=== PATIENT | female | born 1945 | race Caucasian/White ===

== ENCOUNTER 2023-08-19 23:11 | Inpatient (IN) | payer MEDICARE, SELFPAY ==
[2023-08-19] VITALS (7 sets, daily range): BP systolic 99–124; BP diastolic 53–70; BMI 27.4
[2023-08-19 19:47] LABS: % Basophils 1.2 % (0-2); % Eosinophils 1.9 % (0-6); % Immature Granulocytes 0.2 % (0-0.5); % Lymphocytes 28.5 % (20.5-51.1); % Monocytes 11.2 % (1.7-9.3); Absolute Basophils 0.1 10^3/uL (0-0.2); Absolute Eosinophils 0.1 10^3/uL (0-0.7); Absolute Lymphocytes 1.5 10^3/uL (1.2-3.4); Absolute Monocytes 0.6 10^3/uL (0.1-0.6); Hematocrit 30.8 % (37.0-47.0); Hemoglobin 10.1 g/dL (12.0-16.0); Mean Corp Hgb Conc. 32.8 g/dL (33.0-37.0); Mean Corpuscular Hgb 29.4 pg (27.0-31.0); Mean Corpuscular Volume 89.5 fL (81.0-99.0); Mean Platelet Volume 8.7 fL (7.4-10.4); Nucleated Red Blood Cells % 0 %; Platelet Count 324 10^3/uL (130-400); Red Blood Cell Count 3.44 10^6/uL (4.20-5.40); Red Cell Dist. Width 15.2 % (11.5-14.5); White Blood Cell Count 5.2 10^3/uL (4.8-10.8)
[2023-08-19 20:02] LABS: ALT (SGPT) 15 U/L (0-35); AST (SGOT) 19 U/L (14-36); Albumin 3.5 g/dl (3.5-5.0); Alkaline Phosphatase 95 U/L (38-126); Blood Urea Nitrogen 31 mg/dl (7-17); Carbon Dioxide 25 mmol/L (22-30); Chloride 105 mmol/L (98-107); Estimated Creatinine Clearance 74 ml/min; Glucose 82 mg/dl (70-99); Potassium 4.3 mmol/L (3.5-5.1); Sodium 139 mmol/L (135-145); Total Bilirubin 0.4 mg/dl (0.2-1.3); Total Protein 5.9 g/dl (6.3-8.2); eGFR > 60.00
[2023-08-19 20:07] LABS: NT-proBNP 207 pg/ml
--- NOTE | 2023-08-19 20:19 | ED.GENMED ---
History of Present Illness
General
Chief Complaint: Failure to Thrive
Source: patient
Exam Limitations: altered mental status
Time Seen by Provider: 08/19/23 19:59
Nursing documentation reviewed up to this point in time: agreed with
Travel History
Have you had any contact with someone who has COVID-19?: No
Do you have any symptoms of coronavirus? Fever > 100 degrees, chills, cough, shortness of breath, sore throat, loss of taste or smell, muscle aches, or headache?: No
History of Present Illness
History of Present Illness:
77 female via EMS presents with failure to thrive, swollen legs hip pain my evaluation she opens eyes to voice she is confused soft blood pressure red swollen legs tells me this is an acute on chronic problem for her
Past History
Past History
ED Past Medical History: Other (Venous stasis)
Social History
Tobacco: Other
Alcohol: Other
Drug: Other
Personal: Single
Living: alone
Employment: Not employed
Phy Exam
Physical Exam
Physical Exam:
Physical Exam
General: Appearing female eyes closed opens to voice
Neck: Lips are dry
Heart: s1/s2 regular rate and rhythm, no murmur. equal radial pulses.
Lungs: no acute respiratory distress.
Abdomen: Soft nontender
Neuro: Confused follows simple commands
Skin: no rash
Psychiatric: Unable to assess
Extremities: Swollen venous stasis cellulitis change
Course
Orders/Labs/Results
Orders:
Orders
08/19/23 19:13
Electrocardiogram (*1) Urgent
Reason for Study: Fatigue / Weakness
08/19/23 19:14
EKG- Treatment ONCE
Hips, Bilat 5 view W/AP Pelvis [CR Hips KALANI w/wo Pel Min 5 Vw*] Urgent
Comment:
Reason For Exam: pain
Include a pelvis x-ray?: Yes
08/19/23 19:33
CMP [Comprehensive Metabolic Panel] Urgent
Complete Blood Count/With Diff Urgent
Pro-BNP [NT-proBNP] Urgent
08/19/23 20:18
CR Chest Portable - 1 View Urgent
Comment:
Reason For Exam: infectoin
Reason Study Needs to be Portable: Patient Unstable
08/19/23 20:21
0.9% Sodium Chloride 1000 ml [Nss] 1,000 ml IV BOLUS
Acetaminophen [Tylenol] 650 mg PO NOW STA
08/19/23 20:24
Electrocardiogram (*1) Urgent
Reason for Study: Vertigo / Dizzy
CT Head W/o Iv Contrast Urgent
Comment:
Reason For Exam: confusion
EKG- Treatment ONCE
08/19/23 20:27
Blood Culture Q30M
BILL Source: Blood/Venous
Specimen Description:
Blood Culture Q30M
BILL Source: Blood/Venous
Specimen Description:
08/19/23 20:35
CeFAZolin 1 GRAM [Ancef] 1 gram in 5 ml IV NOW
08/19/23 20:42
Acetaminophen 1000MG/100Ml [Ofirmev] 1,000 mg in 100 ml IV ONCE
Acetaminophen IV Indication:: No NV & No Enteral Access
08/19/23 20:53
Urinalysis Reflex To Culture Stat
Abnormal Lab Results
08/19/23
19:33
RBC 3.44 L 10^6/uL
(4.20-5.40)
Hgb 10.1 L g/dL
(12.0-16.0)
Hct 30.8 L %
(37.0-47.0)
MCHC 32.8 L g/dL
(33.0-37.0)
RDW 15.2 H %
(11.5-14.5)
Monocytes % 11.2 H %
(1.7-9.3)
BUN 31 H mg/dl
(7-17)
Total Protein 5.9 L g/dl
(6.3-8.2)
08/19/23 19:33
08/19/23 19:33
Vital Signs
Initial and Last Documented VS:
Initial Vital Signs
Temp Pulse Resp BP Pulse Ox
97.8 F 88 25 109/55 99
08/19/23 19:02 08/19/23 19:02 08/19/23 19:02 08/19/23 19:02 08/19/23 19:02
Last Documented Vital Signs
Temp Pulse Resp BP Pulse Ox
97.8 F 86 14 101/55 97
08/19/23 19:02 08/19/23 20:30 08/19/23 20:30 08/19/23 20:20 08/19/23 20:30
*Pulse Oximetry
Patient hypoxic: no
*EKG
Interpreted by ED Provider?: Yes
Interpretation: abnormal
Comparison EKG: no comparison EKG present
Heart Rate: 78
Rate: normal
Rhythm: sinus
Linden: normal axis
Ischemia: non-specific ST changes
*Signal System Testing Maintainer Interpretation
Rate: normal
Interpretation: normal
Heart Rate: 78
Rhythm: sinus
*Critical Care Note
Total Time (30-74mins, 75-104mins- exclusive of procedures): Not Applicable
Update Note
Update Note:
Update patient never been here before she has an unknown baseline mental status, blood pressure is a bit soft white count is noted looks like venous stasis dermatitis will start on Keflex check chest x-ray blood culture CT of the head will require
admission
ED Attending Note
-
Portions of this chart may have been created with voice recognition software.� Occasional wrong word or��sound alike� substitutions may have occurred due to the inherent limitations of voice recognition software.
Discharge Plan
Departure
Patient Disposition: Admit
Date of Disposition: 08/19/23
Time of Disposition: 21:12
Admit to: Telemetry
Presentation/result/management discussed w/ accepting MD/DO: Hospitalist
Patient with high blood pressure during this ER visit?: No
Condition: Fair
Covid-19: Not Applicable
Discharge Problem:
Acute venous stasis dermatitis
Referrals:
UNKNOWN,NO INTERVIEW [Family Provider] -
Interventions
Interventions:
*Risk Screen - Suicide Last Done: 08/19/23 19:02
*General Assessment Last Done: 08/19/23 19:02
*Neglect/Abuse Screening Last Done: 08/19/23 19:02
ED- Fall Risk Assessment Last Done: 08/19/23 19:02
*ED COVID-19 Vaccine History Last Done: 08/19/23 19:02
--- NOTE | 2023-08-19 20:32 | HPS.HSE ---
Addendum entered and electronically signed by Massiel Lamar DO 08/20/23 00:39:
The patient is seen and examined, and reviewed with Deya. I agree with her history and physical, assessment and plan of care as per below.
VSS at this time, AF currently
She is lethargic, unknown baseline, no family to discuss patient's baseline with and EMS did not document condition of patient on arrival to her home.
She responds to sternal rub, no focal deficits noted, CV RRR, no m/r/g, Lungs CTA b/l
Chronic venous stasis changes with overlying cellulitis
-cont IV abx and monitoring of neuro status, await cultures.
-med rec was unable to be performed by Pharmacy-meds have not been obtained from pharmacy since June. Will re-address in am.
Original Note:
Family Physician
-
Family Physician:
Chief Complaint
-
lethargic
b/l LE redness swollen
History of Present Illness
77 year old with unknown medical history presented to us with lethargy. patient extremely lethargic. as per RN ambulance dropped her off. she is been lethargic and sleeping since she came in. opened eye when chest rubbed. ROS is limited. unable to
obtain any history.
received iv Ancef for b/l LE cellulitis.
Medical History
Past Medical History
Past Medical History: Reports Other
Past Surgical History: Reports Other
Social History
Unable to obtain full social history at this time due to: Acuity
Family History
Family History: Not pertinent
Allergies / Home Medications
Allergies reflects when Allergies were last updated in [email or web address].
Home Medications with original date entered in [email or web address]
Allergy/Medication List:
Allergies
Allergy/AdvReac Type Severity Reaction Status Date / Time
No Known Allergies Allergy Unverified 08/19/23 19:02
Review of Systems
-
Unable to obtain full review of systems at this time due to: Acuity
Physical Exam
Vital Signs
Vital Signs
Temp Pulse Resp BP Pulse Ox
97.8 F 83 13 99/53 96
08/19/23 19:02 08/19/23 20:00 08/19/23 20:00 08/19/23 20:00 08/19/23 20:00
Physical Exam
General: Well Developed, Well Nourished and No Apparent Distress
HEENT: NormoCephalic, Moist mucous membranes and Atraumatic
Respiratory: Clear
Cardiac: S1/S2 and Regular Rhythm; No Murmur or Rub
GI: Soft, Non Tender, Non Distended and Normal Bowel Sounds; No Organomegaly
Rectal: Deferred by Provider
Musculoskeletal: No Clubbing, No Cyanosis and No Edema
Skin: Rash and Other (b/l LE red swollen, right LE short)
Neuro: Nonfocal/grossly intact
Laboratory Results
-
08/19/23 19:33
08/19/23 19:33
Laboratory Results
Total Bilirubin 0.4 mg/dl (0.2-1.3) 08/19/23 19:33
AST 19 U/L (14-36) 08/19/23 19:33
ALT 15 U/L (0-35) 08/19/23 19:33
Alkaline Phosphatase 95 U/L (38-126) 08/19/23 19:33
Data Reviewed
-
Lab Data: Labs Reviewed by me
Impression/Plan
-
#lethargic/metabolic encephalopathy unclear cause likely from LE cellulitis
-CT head Small area of encephalomalacia and/or old infarction in the right parietal lobe.No findings to suggest acute intracranial abnormality.
-chest x ray with Mild cardiomegaly.Pulmonary vascularity at least top normal, cannot exclude mild CHF or acute pulmonary edema.
-UA negative.
-iv ancef
-ctm
-blood culture sent from ER
# Anemia unclear chronicity
-Hemoglobin 10.1
-Continue to monitor
#DVT prophylaxis
-Lovenox
#CODE status
-full code
[2023-08-19] MEDS: OFIRMEV 100 IV (20:47)
[2023-08-19] MEDS: ANCEF 5 IV (20:48)
[2023-08-19] MEDS: NSS 1000 IV (20:50)
--- NOTE | 2023-08-19 21:29 | PTCARENOTE ---
Med Rec Note:
Pt obtunded. Home med list compiled from Dr Morrow. Omeprazole is the only medications filled recently on 08/16/23. Furosemide 20mg & 40mg, Lamotrigine and Risperidone all filled last on 06/25/23 for 30 day doses.
Home med list left unconfirmed.
[2023-08-20 00:35] VITALS: BP 118/63; BMI 26.2
--- NOTE | 2023-08-20 00:40 | PTCARENOTE ---
Rec'd to 4E fully awake and alert & oriented x3. c/o discomfort in legs and fingers which are edematous. Impaired movement of legs, hanny Rt leg.
[2023-08-20] MEDS: TYLENOL 650 MG PO (02:22)
--- NOTE | 2023-08-20 02:25 | PTCARENOTE ---
c/o being thirsty and also pain persists in finger joints and Rt leg/knee. Kirit LUNDBERG notified of pt's improvement in alertness/orientation. Swallow test done as suggestion. No difficulty swallowing water; no cough afterward. Tylenol administered
as ordered. No difficulty swallowing pills. Pt very conversive and pleasant. Follows commands. Aware of meds that she has been on and states that currently she has been taking them.
[2023-08-20] MEDS: ANCEF 5 IV ×3 (05:20→19:51)
[2023-08-20] MEDS: FLUSH (NSS) 2 FLUSH IV (05:21)
[2023-08-20 06:28] LABS: Hematocrit 27.6 % (37.0-47.0); Hemoglobin 8.9 g/dL (12.0-16.0); Mean Corp Hgb Conc. 32.2 g/dL (33.0-37.0); Mean Corpuscular Hgb 29.2 pg (27.0-31.0); Mean Corpuscular Volume 90.5 fL (81.0-99.0); Mean Platelet Volume 9.2 fL (7.4-10.4); Platelet Count 289 10^3/uL (130-400); Red Blood Cell Count 3.05 10^6/uL (4.20-5.40); White Blood Cell Count 4.2 10^3/uL (4.8-10.8)
[2023-08-20 06:31] LABS: Blood Urea Nitrogen 27 mg/dl (7-17); Calcium 8.2 mg/dl (8.4-10.2); Carbon Dioxide 25 mmol/L (22-30); Chloride 108 mmol/L (98-107); Estimated Creatinine Clearance 65 ml/min; Glucose 86 mg/dl (70-99); Potassium 4.4 mmol/L (3.5-5.1); Sodium 136 mmol/L (135-145); eGFR > 60.00
[2023-08-20 07:55] VITALS: BP 100/57
--- NOTE | 2023-08-20 14:26 | W.PN.HOSP.TC ---
Today's Communication/Plan
-
Psyche eval
ECHO LE Doppler
Lasix
Iron studies.
PT OT
Wean Oxygen
Assessment / Plan
Assessment / Plan
77-year-old female presented to the emergency room with the help of EMS will drop her off in the ER. Patient states that she was admitted to [facility] it was a '1 day affair' and was discharged on Saturday. She thinks she came here on
Saturday but actually she was admitted on Saturday. She does not know what happened between Saturday and Saturday. She does not know any of her medicines. Does not know any of her medical conditions. States that she has itching of her legs. States that
she has difficulty ambulating. Denies any chest pain or shortness of breath but she is on oxygen.
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 He also notes that she was on lithium at 1 point
he is not sure about any of her medicines at this point. He stated that if she does not get her medicines she will go 'nuts'. He also confirmed that patient is a full code
On examination patient has torticollis
Disheveled appearance
Cardiovascular system S1-S2 appreciated, short systolic murmur at apex
Bilateral lower extremity pedal edema
Chronic venous stasis changes noted mild redness
Abdomen soft and nontender
#Acute hypoxic respiratory insufficiency
Pulmonary vascularity top normal size on x-ray
Give a dose of Lasix
Check echo
Venous Dopplers of lower extremity
Cellulitis being treated with ancef
# Anemia-check iron studies and B12
#Chronic Leg pain and Back pain
Cant ambulate well
Uses walker to walk
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
Medicines need to be verified prior to administering get records from [facility] [place]
Psyche eval
#Torticollis
# DVT prophylaxis-Lovenox
# Full code
Discussed with nursing
Discussed with patient's son on the phone.
Anticipated Discharge: 24 - 48 hours
Subjective/Interval History
-
Date of Service: August 20, 2023
Objective Data
-
Labs:
Laboratory Results
08/20/23
04:56
WBC 4.2 L
Hgb 8.9 L
Hct 27.6 L
Plt Count 289
Sodium 136
Potassium 4.4
Chloride 108 H
Carbon Dioxide 25
BUN 27 H
Creatinine 0.5 L
Glucose 86
Calcium 8.2 L
Vital Signs:
Vital Signs
Temp Pulse Resp BP Pulse Ox
98.2 F 75 18 100/57 96
08/20/23 07:55 08/20/23 07:55 08/20/23 07:55 08/20/23 07:55 08/20/23 07:55
[2023-08-20] MEDS: LASIX 40 MG IV (15:02)
[2023-08-20 15:18] LABS: Iron 34 ug/dl (37-170)
[2023-08-20 15:27] LABS: Percent Saturation 11 % (20-50); Total Iron Binding Capacity 291 ug/dl (265-497)
[2023-08-20 15:55] VITALS: BP 130/64
[2023-08-20 16:28] LABS: Ferritin 19.3 ng/ml (11.1-264.0)
--- NOTE | 2023-08-20 16:34 | CM ---
Alert awake confused patient who lives alone in an apartment with an elevator.She was brought here from [place] .Pt provided son Hubert perez [phone] and friend Amelia number [phone]. Son said that she has mental disease and needs her
psychiatric meds.She usually goes to [facility]. She uses a wheel chair and walker. She has food delivered and medicines.
Has hx of many SNF son does not remember names.
Pharmacy [facility]
PCP Dr Mark Hammonds
PLAN Will depend on course of care
[2023-08-20 16:42] LABS: Vitamin B12 255 pg/ml (239-931)
[2023-08-20] MEDS: LOVENOX 40 MG SC (17:00)
[2023-08-20 23:27] VITALS: BP 106/47
[2023-08-20] MEDS: MAALOX 30 ML PO (23:40)
[2023-08-21] MEDS: ANCEF 5 IV ×3 (04:31→20:26)
[2023-08-21 07:47] LABS: Hematocrit 31.9 % (37.0-47.0); Hemoglobin 10.4 g/dL (12.0-16.0); Mean Corp Hgb Conc. 32.6 g/dL (33.0-37.0); Mean Corpuscular Hgb 29.1 pg (27.0-31.0); Mean Corpuscular Volume 89.4 fL (81.0-99.0); Mean Platelet Volume 9.1 fL (7.4-10.4); Platelet Count 321 10^3/uL (130-400); Red Blood Cell Count 3.57 10^6/uL (4.20-5.40); Red Cell Dist. Width 14.7 % (11.5-14.5); White Blood Cell Count 5.5 10^3/uL (4.8-10.8)
[2023-08-21 07:55] VITALS: BP 133/71
[2023-08-21 08:22] LABS: Blood Urea Nitrogen 16 mg/dl (7-17); Calcium 8.6 mg/dl (8.4-10.2); Carbon Dioxide 29 mmol/L (22-30); Chloride 107 mmol/L (98-107); Estimated Creatinine Clearance 65 ml/min; Glucose 89 mg/dl (70-99); Sodium 135 mmol/L (135-145); eGFR > 60.00
[2023-08-21] MEDS: CYANOCOBALAMIN 1000 MCG IM (09:01)
[2023-08-21 11:44] LABS: TSH 1.01 uIU/ml (0.47-4.68)
[2023-08-21 12:01] LABS: TSH 0.89 uIU/ml (0.47-4.68)
--- NOTE | 2023-08-21 13:00 | CON.MD ---
Consultation - Medical
-
patient seen chart reviewed. patient is a 77 year old woman who comes to [facility] complaint of failure to thrive, weakness, lethargy. she was described as confused and lethargic. she was NOT confused or lethargic when i saw her. she is not a hyper
person by any means but was calmly conversant. she lives on her own in [place] with [facility]. she gets around with a wheelchair. she does have a psych hx of schizoaffective disorder and was last hospitalized ten years ago. she made a
suicide attempt in her twenties. she was on a great deal more risperdal in the past (6 mg) but said she and her doctor (pcp) were gradually reducing the dose and it is now 2 mg. she said it helps her maintain a stable mood. there is no current
evidence of psychosis. also takes lamictal 150 mg bid. she is not particularly depressed right now. she has no suicidal thoughts. no overt psychosis. patient could not explain to me exactly why she could not walk other than pain. see med hx below
past psych hx see above psych illness said to have occurred after a tbi
medical hx reviewed records from [facility] where she was recently. there seem to be many reasons for her ambulatory dysfunction in cluding venous stasis bilateral oa /severe djd of the hips and had been seen by ortho..mentioned she was 'not
interested in surgical repair' but the record did not include what repair may have been recommended. hx anemia LE edema chronic pain gerd chikis hld hx of tbi, cva, scoliosis cat brain shows old infarct cxr prominent pulmonary vasc leg US no
new findings see hip xray.
family hx non contrib
substance abuse none
social hx patient has one son and two grands does not see them much. 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 she worked only for a short time
mse alert ox3 cooperative quietly pleasant. speech soft and normal rate mood is neutral affect ok no si no psychosis above ave intell insight judgment ok
dx schizoaffective d/o by hx
plan would continue lamictal as is. we discussed trying to go down a bit more on the risperdal to 2 mg. suggested she take it at hs but she said she takes all meds in the am as she fears she might forget to take it. patient does seem very frail to
be living alone but seems competent to make up her own mind. would snf for PT strengthening help? will follow up tomorrow.
[2023-08-21 13:02] LABS: Urine Albumin Negative (Neg - Trace); Urine Bilirubin Negative (Negative); Urine Character Clear (Clear); Urine Color Straw; Urine Glucose Negative (Negative); Urine Ketone Negative (Negative); Urine Leukocyte Negative (Negative); Urine Nitrite Negative (Negative); Urine Occult Blood Negative (Negative); Urine Urobilinogen Negative (Neg - 1+)
[2023-08-21] MEDS: FERRLECIT 110 MG IV (13:15)
[2023-08-21] MEDS: LAMICTAL 150 MG PO ×2 (13:32→20:26)
[2023-08-21] MEDS: RISPERDAL 2 MG PO (13:35)
--- NOTE | 2023-08-21 15:50 | W.PN.HOSP.TC ---
Today's Communication/Plan
-
Continue risperidone, Lamictal
Discharge planning
Assessment / Plan
Assessment / Plan
77-year-old female presented to the emergency room with the help of EMS will drop her off in the ER. Patient states that she was admitted to [facility] it was a '1 day affair' and was discharged on Saturday. She thinks she came here on
Saturday but actually she was admitted on Saturday. She does not know what happened between Saturday and Saturday. She does not know any of her medicines. Does not know any of her medical conditions. States that she has itching of her legs. States that
she has difficulty ambulating. Denies any chest pain or shortness of breath but she is on oxygen.
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 He also notes that she was on lithium at 1 point
he is not sure about any of her medicines at this point. He stated that if she does not get her medicines she will go 'nuts'. He also confirmed that patient is a full code
Records from [facility] reviewed-patient has history of
Schizoaffective disorder-severe
DJD, scoliosis
Chronic pain syndrome
TBI with slurry speech
CVA
Hyperlipidemia
Iron deficiency anemia
GERD
Tonsillectomy
Allergies to Parlodel, Septra, vancomycin, sulfa, ceftazidime
She was admitted for bilateral lower extremity edema from chronic venous stasis was treated with Lasix. Echo in November 2022 ejection fraction 55%. Grade 1 diastolic dysfunction. Moderate TR. Mild MR.
She also has a history of iron deficiency anemia hemoglobin around 10. Last colonoscopy 2017 she was on iron sulfate as outpatient
Severe DJD of the right hip patient has seen orthopedics in the past and received right hip injection in June 2023.
Sleep apnea-she does not use CPAP at home
GERD
Schizoaffective disorder
Chronic pain syndrome
Hyperlipidemia not on any medicines
TBI
History of CVA not on aspirin or statin per patient's preference
Scoliosis
She had a chest x-ray done on August 06-showed scarring mild indistinction of the central pulmonary vascular markings stable cardiomegaly
Atherosclerosis
Discharge medicines as of August 06
Risperidone 3 mg p.o. daily
Lamotrigine 150 mg p.o. twice daily
Vitamin D3 1000 units daily
Lidocaine patch as needed for pain
Tylenol 650 mg every 6 hours as needed for pain
Celebrex 100 mg p.o. twice daily
Iron sulfate 325 mg daily
Omeprazole 40 mg daily
Patient was advised to follow-up with Dr. Kaiser at [facility]

CVS: S1-S2 normal
Chest: CTA B/L
Abdomen: Soft, NT / Bowel sounds present
Extremities: edema and redness better
Torticolis
SAND MIXER: Non focal exam
Echo 08/20/2024 normal LV size. Ejection fraction 60 to 65%. Normal diastolic function. Mild TR. Pulmonary artery pressure was 36 mmHg.
Plan
#Acute hypoxic respiratory insufficiency
Pulmonary vascularity top normal size on x-ray
Give a dose of Lasix
Venous Dopplers of lower extremity
Cellulitis being treated with ancef
# Anemia-Replace low B12 and iron
#Chronic Leg pain and Back pain
Cant ambulate well
Uses walker to walk
PT OT eval noted
#Schizo affective disorder. After TBI
Continue Lamictal and risperidone
# GERD-add PPI
# Atherosclerosis
# History of CVA-add aspirin
# Sleep apnea-not on CPAP
# Scoliosis
# DVT prophylaxis-Lovenox
# Full code
Discussed with nursing
08/20/2023-discussed with patient's son on the phone.
Discussed with case management
Anticipated Discharge: Within 24 hours
Subjective/Interval History
-
Date of Service: August 21, 2023
Objective Data
-
Labs:
Laboratory Results
08/21/23
06:32
WBC 5.5
Hgb 10.4 L
Hct 31.9 L
Plt Count 321
Sodium 135
Potassium 4.0
Chloride 107
Carbon Dioxide 29
BUN 16
Creatinine 0.6
Glucose 89
Calcium 8.6
Vital Signs:
Vital Signs
Temp Pulse Resp BP Pulse Ox
97.5 F 72 18 133/71 95
08/21/23 07:55 08/21/23 07:55 08/21/23 07:55 08/21/23 07:55 08/21/23 09:13
I&O
08/20/23 08/21/23 08/22/23
06:59 06:59 06:59
Intake Total 750 / 750
Output Total 2650 / 2650
Balance -1900 / -190
[2023-08-21 15:55] VITALS: BP 119/67
--- NOTE | 2023-08-21 16:44 | CM ---
Spoke with Hoda from [facility] [phone] . Requested clinical fax to floor with patient backround which was done.
Hoda said she has been on service for a while.
Psychiatry saw patient and resumed her psychiatry meds.
As per MD she is capable to make own decisions.
Admission notified to add PCP DR Pena [phone] to chart.
PLAN Home with resumed [facility] fax [phone]
[2023-08-21] MEDS: PROTONIX 40 MG PO (16:57)
[2023-08-21] MEDS: LASIX 40 MG IV (16:57)
[2023-08-21] MEDS: LOVENOX 40 MG SC (17:04)
[2023-08-21] MEDS: BENADRYL 25 MG PO (22:57)
[2023-08-21 23:36] VITALS: BP 95/44
[2023-08-22] MEDS: ANCEF 5 IV ×2 (03:46→11:36)
[2023-08-22 06:00] VITALS: BMI 23.6
[2023-08-22 07:00] VITALS: BP 108/66
--- NOTE | 2023-08-22 07:30 | PN.CDI ---
CDI
- -
CDI:
Physician Documentation Request
Admit Date: 08/19/23 23:11
Dear Doctor Geo,
Please review the following and provide your response in the progress notes.
Clinical Indicators:
H+P, 08/19
#-chest x ray with Mild cardiomegaly.Pulmonary vascularity at least top normal,
#...cannot exclude mild CHF or acute pulmonary edema.
PN, 08/21
#...bilateral lower extremity edema from chronic venous stasis was treated with Lasix.
#Echo in November 2022 ejection fraction 55%.
#...Grade 1 diastolic dysfunction. Moderate TR. Mild MR.
#Acute hypoxic respiratory insufficiency
#Pulmonary vascularity top normal size on x-ray
#Give a dose of Lasix
Medications
Furosemide (Furosemide 40 Mg (10 Mg/Ml) 4 Ml Vial) 40 mg IV NOW STA
Stop: 08/21/23 16:15
Last Admin: 08/21/23 16:57 Dose: 40 mg
Furosemide (Furosemide 40 Mg (10 Mg/Ml) 4 Ml Vial) 40 mg IV NOW STA
Stop: 08/20/23 14:32
Last Admin: 08/20/23 15:02 Dose: 40 mg
Home meds, (unconfirmed)
Lasix 20 and 40 mg PO daily
Please clarify the acuity and etiology of the pulmonary edema(cardiac vs. noncardiogenic) and treatment rendered:
Acute non-cardiac pulmonary edema due to fluid overload
Acute non-cardiac pulmonary edema due to other cause (please specify)\\
Acute pulmonary edema due to heart failure(specify type and acuity)
...Acute diastolic CHF
...Chronic diastolic CHF
...Acute on chronic diastolic CHF
...Acute systolic CHF
...Chronic systolic CHF
...Acute on chronic systolic CHF
Chronic pulmonary edema due to non-cardiac etiology (specify cause)
Other
Use of terms such as suspected, likely, concern for, or probable (associated with a specific diagnosis that is being evaluated, monitored, or treated as if it exists) are acceptable and can be coded in the inpatient setting, when documented at the
time of discharge.
Thank you,
Shakila Hutton RN BSN CCDS
CDI Specialist
please contact via tiger text
Please use your independent medical judgment in providing your response.
--- NOTE | 2023-08-22 07:44 | PN.CDI ---
Addendum entered and electronically signed by Jonnathan Guardado MD 08/22/23 07:50:
So if something is mentioned in the H and P why do we have to say present on admission. Isnt that the first document on that patient after ER?
Original Note:
CDI
- -
CDI:
Physician Documentation Request
Admit Date: 08/19/23 23:11
Dear Doctor Geo,
Please review the following and provide your response in the progress notes.
Clinical Indicators:
H+P, 08/19
#lethargic/metabolic encephalopathy unclear cause likely from LE cellulitis
#...-CT head Small area of encephalomalacia and/or
#...old infarction in the right parietal lobe.
#No findings to suggest acute intracranial abnormality.
Please clarify the following:
Multifactorial metabolic encephalopathy was present on admission
Multifactorial metabolic encephalopathy was not present on admission
Other
Unable to determine
Use of terms such as suspected, likely, concern for, or probable (associated with a specific diagnosis that is being evaluated, monitored, or treated as if it exists) are acceptable and can be coded in the inpatient setting, when documented at the
time of discharge.
Thank you,
Shakila Hutton RN BSN CCDS
CDI Specialist
please contact via tiger text
Please use your independent medical judgment in providing your response.
[2023-08-22] MEDS: RISPERDAL 2 MG PO (08:48)
[2023-08-22] MEDS: LAMICTAL 150 MG PO ×2 (08:48→21:27)
[2023-08-22] MEDS: CYANOCOBALAMIN 1000 MCG IM (08:48)
[2023-08-22] MEDS: PROTONIX 40 MG PO (08:48)
[2023-08-22 09:02] LABS: Hematocrit 31.2 % (37.0-47.0); Hemoglobin 10.2 g/dL (12.0-16.0); Mean Corp Hgb Conc. 32.7 g/dL (33.0-37.0); Mean Corpuscular Hgb 29.1 pg (27.0-31.0); Mean Corpuscular Volume 88.9 fL (81.0-99.0); Mean Platelet Volume 9.1 fL (7.4-10.4); Platelet Count 313 10^3/uL (130-400); Red Blood Cell Count 3.51 10^6/uL (4.20-5.40); Red Cell Dist. Width 15.1 % (11.5-14.5); White Blood Cell Count 5.3 10^3/uL (4.8-10.8)
--- NOTE | 2023-08-22 09:21 | CM ---
Addendum entered by Sri Jerez RN 08/22/23 11:09:
PT changed eval to SNF.
SPoke with patient she requested [facility] . Referral placed. Pt would not provide any other SNF choices.
Addendum entered by Sri Jerez RN 08/22/23 09:35:
In referral to [facility] added social media content specialist consult for extra recourses.
Original Note:
Spoke with Hoda from [facility] [phone] . Care port referral placed . Hoda aware that pt is dc today to home with .Pt is known to [facility].
Psychiatry saw patient and resumed her psychiatry meds.
spoke with patient she said she does not have a ride home. She requested an ambulance to go home. She is aware that she will be charged for ambulance ride home. Medical nec form completed.
As per MD she is capable to make own decisions.
Admission notified to add PCP DR Pena [phone] to chart.
PLAN Home with resumed [facility] fax [phone]
[2023-08-22 09:34] VITALS: BP 105/71; PULSE 91
[2023-08-22 09:47] LABS: Blood Urea Nitrogen 17 mg/dl (7-17); Calcium 8.6 mg/dl (8.4-10.2); Carbon Dioxide 26 mmol/L (22-30); Chloride 107 mmol/L (98-107); Estimated Creatinine Clearance 65 ml/min; Glucose 85 mg/dl (70-99); Potassium 4.2 mmol/L (3.5-5.1); Sodium 136 mmol/L (135-145); eGFR > 60.00
--- NOTE | 2023-08-22 11:55 | W.PN.UPDATE ---
Update Note
Progress Note Update
patient seen chart reviewed. spoke with nursing and with dr patel. the patient is very different from yesterday. she is VERY sedated i believe from the psych meds restarted in the am. i had asked her about taking them in am as risperdal can be
very sedating but she preferred am. i asked her today if she took meds reliably. she said w she would miss a day here and there. this might acccount for the sedation. am going to move risperdal to hs and decrease to one mg. i don't see anything
psychotic about her at this point and she does not seem mood labile. she will definitely need snf after dc and she is agreeable to same. will follow
[2023-08-22] MEDS: FERRLECIT 110 MG IV (13:16)
[2023-08-22 13:37] VITALS: BMI 24.5
--- NOTE | 2023-08-22 14:57 | W.PN.HOSP.TC ---
Today's Communication/Plan
-
Change AB to PO
Medically stable for discharge to rehab per PT recommendations
Assessment / Plan
Assessment / Plan
77-year-old female presented to the emergency room with the help of EMS will drop her off in the ER. Patient states that she was admitted to [facility] it was a '1 day affair' and was discharged on Saturday. She thinks she came here on
Saturday but actually she was admitted on Saturday. She does not know what happened between Saturday and Saturday. She does not know any of her medicines. Does not know any of her medical conditions. States that she has itching of her legs. States that
she has difficulty ambulating. Denies any chest pain or shortness of breath but she is on oxygen.
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 He also notes that she was on lithium at 1 point
he is not sure about any of her medicines at this point. He stated that if she does not get her medicines she will go 'nuts'. He also confirmed that patient is a full code
Records from [facility] reviewed-patient has history of
Schizoaffective disorder-severe
DJD, scoliosis
Chronic pain syndrome
TBI with slurry speech
CVA
Hyperlipidemia
Iron deficiency anemia
GERD
Tonsillectomy
Allergies to Parlodel, Septra, vancomycin, sulfa, ceftazidime
She was admitted for bilateral lower extremity edema from chronic venous stasis was treated with Lasix. Echo in November 2022 ejection fraction 55%. Grade 1 diastolic dysfunction. Moderate TR. Mild MR.
She also has a history of iron deficiency anemia hemoglobin around 10. Last colonoscopy 2017 she was on iron sulfate as outpatient
Severe DJD of the right hip patient has seen orthopedics in the past and received right hip injection in June 2023.
Sleep apnea-she does not use CPAP at home
GERD
Schizoaffective disorder
Chronic pain syndrome
Hyperlipidemia not on any medicines
TBI
History of CVA not on aspirin or statin per patient's preference
Scoliosis
She had a chest x-ray done on August 06-showed scarring mild indistinction of the central pulmonary vascular markings stable cardiomegaly
Atherosclerosis
Discharge medicines as of August 06
Risperidone 3 mg p.o. daily
Lamotrigine 150 mg p.o. twice daily
Vitamin D3 1000 units daily
Lidocaine patch as needed for pain
Tylenol 650 mg every 6 hours as needed for pain
Celebrex 100 mg p.o. twice daily
Iron sulfate 325 mg daily
Omeprazole 40 mg daily
Patient was advised to follow-up with Dr. Kaiser at [facility]

CVS: S1-S2 normal
Chest: CTA B/L
Abdomen: Soft, NT / Bowel sounds present
Extremities: mild edema and redness better
Torticolis
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
Echo 08/20/2024 normal LV size. Ejection fraction 60 to 65%. Normal diastolic function. Mild TR. Pulmonary artery pressure was 36 mmHg.
Plan
#Acute hypoxic respiratory insufficiency
Pulmonary vascularity top normal size on x-ray
May be non cardiogenic
As Normal systolic and diastolic function on ECHO here
Chronic venous stasis
Continue Lasix
Venous Dopplers of lower extremity neg
Cellulitis being treated with ancef-change to Keflex
# Anemia-Replace low B12 and iron
#Chronic Leg pain and Back pain
Cant ambulate well
Uses walker to walk
PT OT eval noted
#Schizo affective disorder. After TBI
Continue Lamictal and risperidone
# GERD-add PPI
# Atherosclerosis
# History of CVA-add aspirin
# Sleep apnea-not on CPAP
# Scoliosis
# DVT prophylaxis-Lovenox
# Full code
Discussed with nursing
Discussed with case management
Anticipated Discharge: Within 24 hours
Subjective/Interval History
-
Date of Service: August 22, 2023
Objective Data
-
Labs:
Laboratory Results
08/22/23
07:49
WBC 5.3
Hgb 10.2 L
Hct 31.2 L
Plt Count 313
Sodium 136
Potassium 4.2
Chloride 107
Carbon Dioxide 26
BUN 17
Creatinine 0.6
Glucose 85
Calcium 8.6
Vital Signs:
Vital Signs
Temp Pulse Resp BP Pulse Ox
97.9 F 69 18 108/66 97
08/22/23 07:00 08/22/23 07:00 08/22/23 07:00 08/22/23 07:00 08/22/23 07:00
I&O
08/21/23 08/22/23 08/23/23
06:59 06:59 06:59
Intake Total 750 / 750 1235 / 1235
Output Total 2650 / 2650 700 / 700
Balance -1900 / -1900 535 / 535
[2023-08-22] MEDS: BENADRYL 25 MG PO ×2 (15:11→23:12)
[2023-08-22] MEDS: LASIX 40 MG IV (15:11)
[2023-08-22] MEDS: ASPIR LOW (ENTERIC COATED) 81 MG PO (15:11)
[2023-08-22 15:34] VITALS: BP 118/62
[2023-08-22] MEDS: LOVENOX 40 MG SC (17:26)
[2023-08-22] MEDS: KEFLEX 500 MG PO ×2 (17:26→21:27)
[2023-08-22] MEDS: TYLENOL 650 MG PO (23:11)
[2023-08-22 23:22] VITALS: BP 107/55
[2023-08-23 05:01] VITALS: BMI 23.0
[2023-08-23 06:58] LABS: Hematocrit 31.9 % (37.0-47.0); Hemoglobin 10.6 g/dL (12.0-16.0); Mean Corp Hgb Conc. 33.2 g/dL (33.0-37.0); Mean Corpuscular Hgb 29.4 pg (27.0-31.0); Mean Corpuscular Volume 88.4 fL (81.0-99.0); Mean Platelet Volume 8.8 fL (7.4-10.4); Platelet Count 282 10^3/uL (130-400); Red Blood Cell Count 3.61 10^6/uL (4.20-5.40); Red Cell Dist. Width 14.8 % (11.5-14.5)
[2023-08-23 07:16] LABS: Blood Urea Nitrogen 20 mg/dl (7-17); Calcium 8.9 mg/dl (8.4-10.2); Carbon Dioxide 30 mmol/L (22-30); Chloride 103 mmol/L (98-107); Estimated Creatinine Clearance 65 ml/min; Glucose 88 mg/dl (70-99); Potassium 4.3 mmol/L (3.5-5.1); Sodium 135 mmol/L (135-145); eGFR > 60.00
[2023-08-23 07:32] VITALS: BP 108/56
[2023-08-23] MEDS: TYLENOL 650 MG PO ×2 (08:12→22:24)
[2023-08-23] MEDS: ASPIR LOW (ENTERIC COATED) 81 MG PO (08:13)
[2023-08-23] MEDS: LAMICTAL 150 MG PO ×2 (08:13→19:29)
[2023-08-23] MEDS: PROTONIX 40 MG PO (08:13)
[2023-08-23] MEDS: CYANOCOBALAMIN 1000 MCG IM (08:14)
[2023-08-23] MEDS: KEFLEX 500 MG PO ×4 (08:14→22:24)
[2023-08-23 11:30] VITALS: BP 100/60
[2023-08-23] MEDS: FERRLECIT 110 MG IV (13:13)
--- NOTE | 2023-08-23 14:05 | W.PN.UPDATE ---
Update Note
Progress Note Update
patient seen chart reviewed. discussed w nursing. patient is awake and much more alert today since risperdal moved to hs. she has been medically cleared for dc to snf but is very fearful when she leaves she will backslide in terms of her medical
condition. tried to reassure her that this will hopefully not be the case. cm searching for snf bed. we will check in on her tomorrow. tonight she resumes one mg risperdal. i did talk to her about moving all the lamotrogine to hs but she was not
keen on it. will leave meds as they are for now.
[2023-08-23 14:46] VITALS: BP 86/52
--- NOTE | 2023-08-23 16:10 | W.PN.HOSP.TC ---
Today's Communication/Plan
-
Medically stable for rehab
Assessment / Plan
Assessment / Plan
77-year-old female presented to the emergency room with the help of EMS will drop her off in the ER. Patient states that she was admitted to [facility] it was a '1 day affair' and was discharged on Saturday. She thinks she came here on
Saturday but actually she was admitted on Saturday. She does not know what happened between Saturday and Saturday. She does not know any of her medicines. Does not know any of her medical conditions. States that she has itching of her legs. States that
she has difficulty ambulating. Denies any chest pain or shortness of breath but she is on oxygen.
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 He also notes that she was on lithium at 1 point
he is not sure about any of her medicines at this point. He stated that if she does not get her medicines she will go 'nuts'. He also confirmed that patient is a full code

CVS: S1-S2 normal
Chest: CTA B/L
Abdomen: Soft, NT / Bowel sounds present
Extremities: mild edema and redness better
Torticolis
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
Echo 08/20/2024 normal LV size. Ejection fraction 60 to 65%. Normal diastolic function. Mild TR. Pulmonary artery pressure was 36 mmHg.
Plan
#Acute hypoxic respiratory insufficiency
Pulmonary vascularity top normal size on x-ray
May be acute non cardiogenic
As Normal systolic and diastolic function on ECHO here
Chronic venous stasis
S/P Lasix
Venous Dopplers of lower extremity neg
Cellulitis being treated with Ancef-change to Keflex
# Anemia-Replace low B12 and iron
#Chronic Leg pain and Back pain
Cant ambulate well
Uses walker to walk
PT OT eval noted
#Schizo affective disorder. After TBI
Continue Lamictal and risperidone
# GERD-add PPI
# Atherosclerosis
# History of CVA-Aspirin
# Sleep apnea-not on CPAP
# Scoliosis
# DVT prophylaxis-Lovenox
# Full code
Discussed with nursing
Discussed with case management
Left message for SON

Records from [facility] reviewed-patient has history of
Schizoaffective disorder-severe
DJD, scoliosis
Chronic pain syndrome
TBI with slurry speech
CVA
Hyperlipidemia
Iron deficiency anemia
GERD
Tonsillectomy
Allergies to Parlodel, Septra, vancomycin, sulfa, ceftazidime
She was admitted for bilateral lower extremity edema from chronic venous stasis was treated with Lasix. Echo in November 2022 ejection fraction 55%. Grade 1 diastolic dysfunction. Moderate TR. Mild MR.
She also has a history of iron deficiency anemia hemoglobin around 10. Last colonoscopy 2017 she was on iron sulfate as outpatient
Severe DJD of the right hip patient has seen orthopedics in the past and received right hip injection in June 2023.
Sleep apnea-she does not use CPAP at home
GERD
Schizoaffective disorder
Chronic pain syndrome
Hyperlipidemia not on any medicines
TBI
History of CVA not on aspirin or statin per patient's preference
Scoliosis
She had a chest x-ray done on August 06-showed scarring mild indistinction of the central pulmonary vascular markings stable cardiomegaly
Atherosclerosis
Discharge medicines as of August 06
Risperidone 3 mg p.o. daily
Lamotrigine 150 mg p.o. twice daily
Vitamin D3 1000 units daily
Lidocaine patch as needed for pain
Tylenol 650 mg every 6 hours as needed for pain
Celebrex 100 mg p.o. twice daily
Iron sulfate 325 mg daily
Omeprazole 40 mg daily
Patient was advised to follow-up with Dr. Kaiser at [facility]
Anticipated Discharge: Within 24 hours
Subjective/Interval History
-
Date of Service: August 23, 2023
Objective Data
-
Labs:
Laboratory Results
08/23/23
06:21
WBC 6.0
Hgb 10.6 L
Hct 31.9 L
Plt Count 282
Sodium 135
Potassium 4.3
Chloride 103
Carbon Dioxide 30
BUN 20 H
Creatinine 0.6
Glucose 88
Calcium 8.9
Vital Signs:
Vital Signs
Temp Pulse Resp BP Pulse Ox
98.1 F 99 16 86/52 96
08/23/23 14:46 08/23/23 14:46 08/23/23 14:46 08/23/23 14:46 08/23/23 14:46
I&O
08/22/23 08/23/23 08/24/23
06:59 06:59 06:59
Intake Total 1235 / 1235 835 / 835
Output Total 700 / 700 2875 / 2875
Balance 535 / 535 -2039 /
[2023-08-23 16:19] VITALS: BP 94/59; PULSE 88; O2SAT 98
--- NOTE | 2023-08-23 16:45 | CM ---
Referral placed to [facility] said Thier were no beds.
Spoke with patient she suggested other SNF she said with [facility].
Referral for [facility] said no beds.
Upon reviewing decided to call [facility] for a level 2 MA 51 assessment.
Spoke with Gloria Shore and Carolyn . MA 51 and Level 2 consents signed by patient and MD.
Clinical and forms faxed to [phone].
IMM letter given to patient to read.
PLAN To Snf after level2 done and SNF located
[2023-08-23] MEDS: LOVENOX 40 MG SC (17:28)
[2023-08-23] MEDS: BENADRYL 25 MG PO (22:24)
[2023-08-23] MEDS: RISPERDAL 1 MG PO (22:24)
[2023-08-23 23:55] VITALS: BP 119/52
[2023-08-24 06:00] VITALS: BMI 24.1
[2023-08-24 07:00] VITALS: BP 95/47
[2023-08-24] MEDS: PROTONIX 40 MG PO (08:01)
[2023-08-24] MEDS: LAMICTAL 150 MG PO ×2 (08:02→20:45)
[2023-08-24] MEDS: KEFLEX 500 MG PO ×4 (08:02→20:46)
[2023-08-24] MEDS: ASPIR LOW (ENTERIC COATED) 81 MG PO (08:02)
[2023-08-24] MEDS: CYANOCOBALAMIN 1000 MCG IM (08:03)
[2023-08-24 09:00] LABS: Blood Urea Nitrogen 21 mg/dl (7-17); Calcium 9.1 mg/dl (8.4-10.2); Carbon Dioxide 29 mmol/L (22-30); Chloride 101 mmol/L (98-107); Estimated Creatinine Clearance 65 ml/min; Glucose 90 mg/dl (70-99); Potassium 4.3 mmol/L (3.5-5.1); Sodium 136 mmol/L (135-145); eGFR > 60.00
[2023-08-24 12:10] LABS: Vitamin B1, Whole Blood 138 nmol/L (70-180)
--- NOTE | 2023-08-24 12:15 | W.PN.HOSP.TC ---
Today's Communication/Plan
-
Medically stable for discharge
Assessment / Plan
Assessment / Plan
77-year-old female presented to the emergency room with the help of EMS will drop her off in the ER. Patient states that she was admitted to [facility] it was a '1 day affair' and was discharged on Saturday. She thinks she came here on
Saturday but actually she was admitted on Saturday. She does not know what happened between Saturday and Saturday. She does not know any of her medicines. Does not know any of her medical conditions. States that she has itching of her legs. States that
she has difficulty ambulating. Denies any chest pain or shortness of breath but she is on oxygen.
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 He also notes that she was on lithium at 1 point
he is not sure about any of her medicines at this point. He stated that if she does not get her medicines she will go 'nuts'. He also confirmed that patient is a full code

CVS: S1-S2 normal
Chest: CTA B/L
Abdomen: Soft, NT / Bowel sounds present
Extremities: mild edema and redness better
Torticolis
PRACTICE PHYSICIAN: Non focal exam
Echo 08/20/2024 normal LV size. Ejection fraction 60 to 65%. Normal diastolic function. Mild TR. Pulmonary artery pressure was 36 mmHg.
Plan
#Acute hypoxic respiratory insufficiency
Pulmonary vascularity top normal size on x-ray
May be acute non cardiogenic
Has Normal systolic and diastolic function on ECHO here
Chronic venous stasis
S/P Lasix
Venous Dopplers of lower extremity neg
Cellulitis being treated with Ancef-changed to Keflex
Surgigrip for legs
# Anemia-Replace low B12 and iron
#Chronic Leg pain and Back pain
Cant ambulate well
Uses walker to walk
PT OT eval noted
#Schizo affective disorder. After TBI
Continue Lamictal and risperidone
# GERD-PPI
# Atherosclerosis
# History of CVA-Aspirin
# Sleep apnea-not on CPAP
# Scoliosis/DJD
# DVT prophylaxis-Lovenox
# Full code
Discussed with nursing
Called SON, went to message again

Records from [facility] reviewed-patient has history of
Schizoaffective disorder-severe
DJD, scoliosis
Chronic pain syndrome
TBI with slurry speech
CVA
Hyperlipidemia
Iron deficiency anemia
GERD
Tonsillectomy
Allergies to Parlodel, Septra, vancomycin, sulfa, ceftazidime
She was admitted for bilateral lower extremity edema from chronic venous stasis was treated with Lasix. Echo in November 2022 ejection fraction 55%. Grade 1 diastolic dysfunction. Moderate TR. Mild MR.
She also has a history of iron deficiency anemia hemoglobin around 10. Last colonoscopy 2017 she was on iron sulfate as outpatient
Severe DJD of the right hip patient has seen orthopedics in the past and received right hip injection in June 2023.
Sleep apnea-she does not use CPAP at home
GERD
Schizoaffective disorder
Chronic pain syndrome
Hyperlipidemia not on any medicines
TBI
History of CVA not on aspirin or statin per patient's preference
Scoliosis
She had a chest x-ray done on August 06-showed scarring mild indistinction of the central pulmonary vascular markings stable cardiomegaly
Atherosclerosis
Discharge medicines as of August 06
Risperidone 3 mg p.o. daily
Lamotrigine 150 mg p.o. twice daily
Vitamin D3 1000 units daily
Lidocaine patch as needed for pain
Tylenol 650 mg every 6 hours as needed for pain
Celebrex 100 mg p.o. twice daily
Iron sulfate 325 mg daily
Omeprazole 40 mg daily
Patient was advised to follow-up with Dr. Kaiser at [facility]
Anticipated Discharge: Within 24 hours
Subjective/Interval History
-
Date of Service: August 24, 2023
Objective Data
-
Labs:
Laboratory Results
08/24/23
08:05
Sodium 136
Potassium 4.3
Chloride 101
Carbon Dioxide 29
BUN 21 H
Creatinine 0.6
Glucose 90
Calcium 9.1
Vital Signs:
Vital Signs
Temp Pulse Resp BP Pulse Ox
98.1 F 87 18 95/47 95
08/24/23 07:00 08/24/23 07:00 08/24/23 07:00 08/24/23 07:00 08/24/23 07:00
I&O
08/23/23 08/24/23 08/25/23
06:59 06:59 06:59
Intake Total 835 / 835 1410 / 1410
Output Total 2875 / 2875
Balance -2039 / -2039 1410 / 1410
--- NOTE | 2023-08-24 12:17 | W.PN.UPDATE ---
Update Note
Progress Note Update
Psychiatry follow up. Chart reviewed. Patient states she is slept ok and was able to eat breakfast. She is requesting extra coffee. She denies feeling confused and states she is willing to go to a SNF.
MSE- good eye contact. fluent speech. goal directed. Denies SI/HI/AVH. no delusions. limited I/J. oriented to self, place, year, month, date at this time
Plan- continue current regimen. Psychiatry will sign off. contact team with questions or concerns.
[2023-08-24] MEDS: FERRLECIT 110 MG IV (15:05)
[2023-08-24 15:06] VITALS: BP 104/58
[2023-08-24 15:37] VITALS: BP 101/55; PULSE 78; O2SAT 94
[2023-08-24] MEDS: LOVENOX 40 MG SC (18:30)
[2023-08-24] MEDS: RISPERDAL 1 MG PO (20:47)
--- NOTE | 2023-08-24 21:49 | VATNOTE ---
Called by staff educator for ferric sodium gluconate infiltrate given at 15:00. Pt. c/o pain at site, which is red, approx. 5cm x 5cm infiltrate. +radial pulse, +cap. refill 1-2 sec. No cord palpated. Call to pharmacy by this RN, recommend warm or cold
compress and elevate. Med is not a vesicant. Kirit Sharma NP in to see pt. IV removed. Pt. states, 'Feels better with wm. compress'. senior it business analyst aware. Will follow.
[2023-08-24 23:55] VITALS: BP 104/45
[2023-08-25 06:00] VITALS: BMI 24.5
[2023-08-25 08:01] VITALS: BP 97/50
[2023-08-25 08:05] VITALS: BP 97/50
[2023-08-25] MEDS: LAMICTAL 150 MG PO ×2 (08:13→20:59)
[2023-08-25] MEDS: PROTONIX 40 MG PO (08:13)
[2023-08-25] MEDS: KEFLEX 500 MG PO (08:15)
[2023-08-25] MEDS: ASPIR LOW (ENTERIC COATED) 81 MG PO (08:16)
[2023-08-25] MEDS: CYANOCOBALAMIN 1000 MCG IM (08:16)
[2023-08-25 12:11] VITALS: BP 84/46
--- NOTE | 2023-08-25 13:52 | W.PN.HOSP.TC ---
Addendum entered and electronically signed by Jonnathan Guardado MD 08/25/23 14:02:
Stop AB
Original Note:
Today's Communication/Plan
-
Pt waiting for rehab. But now says she wants to go home and havs some one at her home there waiting for her . They need to clean the house as she no longer can do it.
I spoke to son and updated. Patient has had several aids in the past he states that patient becomes paranoid she does not take medicines and then she will start suspecting the aids, therefore cannot keep any of them.
Patient was much calmer until yesterday, appearing very anxious today. I will request psychiatry to evaluate and adjust medicines.
Assessment / Plan
Assessment / Plan
77-year-old female presented to the emergency room with the help of EMS will drop her off in the ER. Patient states that she was admitted to [facility] it was a '1 day affair' and was discharged on Saturday. She thinks she came here on
Saturday but actually she was admitted on Saturday. She does not know what happened between Saturday and Saturday. She does not know any of her medicines. Does not know any of her medical conditions. States that she has itching of her legs. States that
she has difficulty ambulating. Denies any chest pain or shortness of breath but she is on oxygen.
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 He also notes that she was on lithium at 1 point
he is not sure about any of her medicines at this point. He stated that if she does not get her medicines she will go 'nuts'. He also confirmed that patient is a full code

CVS: S1-S2 normal
Chest: CTA B/L
Abdomen: Soft, NT / Bowel sounds present
Extremities: mild edema and redness better
Torticolis
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
Echo 08/20/2024 normal LV size. Ejection fraction 60 to 65%. Normal diastolic function. Mild TR. Pulmonary artery pressure was 36 mmHg.
Plan
#Acute hypoxic respiratory insufficiency
Pulmonary vascularity top normal size on x-ray
May be acute non cardiogenic
Has Normal systolic and diastolic function on ECHO here
Chronic venous stasis
S/P Lasix
Venous Dopplers of lower extremity neg
Cellulitis being treated with Ancef-changed to Keflex
Surgigrip for legs
#Schizo affective disorder. After TBI
Continue Lamictal and risperidone
Patent looks restless and anxious
Risperidone was decreased here
Will request Psyche to see again to see if we need to increase meds.
# Anemia-Replace low B12 and iron
#Chronic Leg pain and Back pain
Cant ambulate well
Uses walker to walk
PT OT eval noted
# GERD-PPI
# Atherosclerosis
# History of CVA-Aspirin
# Sleep apnea-not on CPAP
# Scoliosis/DJD
# DVT prophylaxis-Lovenox
# Full code
Discussed with nursing
Pt waiting for rehab. But now says she wants to go home and havs some one at her home there waiting for her . They need to clean the house as she no longer can do it.
I spoke to son and updated. Patient has had several aids in the past he states that patient becomes paranoid she does not take medicines and then she will start suspecting the aids, therefore cannot keep any of them.
Patient was much calmer until yesterday, appearing very anxious today. I will request psychiatry to evaluate and adjust medicines.

Records from [facility] reviewed-patient has history of
Schizoaffective disorder-severe
DJD, scoliosis
Chronic pain syndrome
TBI with slurry speech
CVA
Hyperlipidemia
Iron deficiency anemia
GERD
Tonsillectomy
Allergies to Parlodel, Septra, vancomycin, sulfa, ceftazidime
She was admitted for bilateral lower extremity edema from chronic venous stasis was treated with Lasix. Echo in November 2022 ejection fraction 55%. Grade 1 diastolic dysfunction. Moderate TR. Mild MR.
She also has a history of iron deficiency anemia hemoglobin around 10. Last colonoscopy 2017 she was on iron sulfate as outpatient
Severe DJD of the right hip patient has seen orthopedics in the past and received right hip injection in June 2023.
Sleep apnea-she does not use CPAP at home
GERD
Schizoaffective disorder
Chronic pain syndrome
Hyperlipidemia not on any medicines
TBI
History of CVA not on aspirin or statin per patient's preference
Scoliosis
She had a chest x-ray done on August 06-showed scarring mild indistinction of the central pulmonary vascular markings stable cardiomegaly
Atherosclerosis
Discharge medicines as of August 06
Risperidone 3 mg p.o. daily
Lamotrigine 150 mg p.o. twice daily
Vitamin D3 1000 units daily
Lidocaine patch as needed for pain
Tylenol 650 mg every 6 hours as needed for pain
Celebrex 100 mg p.o. twice daily
Iron sulfate 325 mg daily
Omeprazole 40 mg daily
Patient was advised to follow-up with Dr. Kaiser at [facility]
Anticipated Discharge: 24 - 48 hours
Subjective/Interval History
-
Date of Service: August 25, 2023
Objective Data
-
Vital Signs:
Vital Signs
Temp Pulse Resp BP Pulse Ox
98.1 F 88 16 84/46 95
08/25/23 12:11 08/25/23 12:11 08/25/23 12:11 08/25/23 12:11 08/25/23 12:11
I&O
08/24/23 08/25/23 08/26/23
06:59 06:59 06:59
Intake Total 1410 / 1410
Balance 1410 / 1410
--- NOTE | 2023-08-25 14:25 | W.PN.UPDATE ---
Update Note
Progress Note Update
Psychiatry asked to follow up with patient as she is was thought to be more anxious today. Her Risperdal dose was recently lowered to 1 mg HS, and the question was about increasing this dose.
Pt was quite clear that on the higher dose she was very sleepy in the morning.
Her anxiety is focussed on her fear of 'going to a chcf and then never getting to go back to my home.'
As this is a reasonable anxiety I do not see it as a rationale to increase dose of Risperdal, especially because of the sedation she experienced. I checked for cogwheeling and there is none.
We will follow up.
[2023-08-25 15:15] VITALS: BP 97/51
[2023-08-25] MEDS: KEFLEX PO (15:23)
--- NOTE | 2023-08-25 15:45 | CM ---
CM following re: d/c planning
Chart reviewed
Pt discharge anticipated within the next 24-48 hours pending level II assessment completed by KARTHIK
CM spoke with patient at bedside and she was very tearful stating her son & spouse had neglected her and the only reason she has any semblance of happiness was through two friends and her cat
Psych is following the patient and will continue until discharged; medications will be adjusted accordingly
Several referrals were placed via care port by the previous CM and some of which do have bed availability
CM will continue to coordinate d/c efforts with the [facility]
PLAN; CM following for d/c needs as indicated
[2023-08-25] MEDS: FERRLECIT IV (15:59)
[2023-08-25] MEDS: LOVENOX 40 MG SC (17:24)
[2023-08-25] MEDS: RISPERDAL 1 MG PO (20:59)
[2023-08-25 23:03] VITALS: BP 113/54
[2023-08-26 06:00] VITALS: BMI 25.0
--- NOTE | 2023-08-26 06:42 | PTCARENOTE ---
Pt awake for majority of shift, did not fall asleep until 05:30. Patient anxious throughout the night with multiple requests for PT to come see her early in AM, stamps for letters for her rn labor and delivery, a hospital bed for home, a list of 'adult living
apartments', and knee and hip injections. Emotional support provided to patient. Plan of care ongoing
[2023-08-26 07:00] VITALS: BP 122/70
[2023-08-26] MEDS: ASPIR LOW (ENTERIC COATED) 81 MG PO (07:55)
[2023-08-26] MEDS: LAMICTAL 150 MG PO ×2 (07:55→21:24)
[2023-08-26] MEDS: PROTONIX 40 MG PO (07:56)
[2023-08-26] MEDS: CYANOCOBALAMIN 1000 MCG IM (07:56)
--- NOTE | 2023-08-26 09:32 | CM ---
Addendum entered by Nasra Gonzales 08/26/23 13:24:
Patient seen at bedside. Patient states she wants to go for [address]. CM indicated that referrals were out looking for options.
Original Note:
CM called to [facility] and left message with players club representative regarding the scheduling of the Level II assessment. Due to holiday, may not receive response today. CM will continue to try to reach person at the agency.
--- NOTE | 2023-08-26 12:11 | W.PN.HOSP.TC ---
Today's Communication/Plan
-
.
Assessment / Plan
Assessment / Plan
77-year-old female presented to the emergency room with the help of EMS will drop her off in the ER. Patient states that she was admitted to [facility] it was a '1 day affair' and was discharged on Saturday. She thinks she came here on
Saturday but actually she was admitted on Saturday. She does not know what happened between Saturday and Saturday. She does not know any of her medicines. Does not know any of her medical conditions. States that she has itching of her legs. States that
she has difficulty ambulating. Denies any chest pain or shortness of breath but she is on oxygen.
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 He also notes that she was on lithium at 1 point
he is not sure about any of her medicines at this point. He stated that if she does not get her medicines she will go 'nuts'. He also confirmed that patient is a full code

Physical exam:
general: not in distress
CVS: S1-S2 normal
Chest: CTA B/L
Abdomen: Soft, NT / Bowel sounds present
Extremities: no edema or redness noted
[place]
TUG BOAT ENGINEER: Non focal exam
Psych: no agitation, calm
Echo 08/20/2024 normal LV size. Ejection fraction 60 to 65%. Normal diastolic function. Mild TR. Pulmonary artery pressure was 36 mmHg.
Plan
#Acute hypoxic respiratory insufficiency
Pulmonary vascularity top normal size on x-ray
May be acute non cardiogenic
Has Normal systolic and diastolic function on ECHO here
Chronic venous stasis
S/P Lasix
Venous Doppler of lower extremity neg
Cellulitis being treated with Ancef-changed to Keflex
Surgigrip for legs
#Schizo affective disorder. After TBI
Continue Lamictal and risperidone
Patent looks restless and anxious
Risperidone was decreased here
Psyche felt dose was appropriate
# IV iron infiltrate on 08/25
indurated lump
will do warm compresses on right forearm
# Anemia-Replace low B12 and iron
#Chronic Leg pain and Back pain
Cant ambulate well
Uses walker to walk
PT OT eval noted
# GERD-PPI
# Atherosclerosis
# History of CVA-Aspirin
# Sleep apnea-not on CPAP
# Scoliosis/DJD
# DVT prophylaxis-Lovenox
# Full code
Total time spent to see the patient, examine the patient on the floor, review data and lab results, discuss treatment plan with patient, nursing staff around 55 minutes
Discussed with nursing
Pt waiting for rehab. But now says she wants to go home and havs some one at her home there waiting for her . They need to clean the house as she no longer can do it.
Hospitalist spoke to son and updated. Patient has had several aids in the past he states that patient becomes paranoid she does not take medicines and then she will start suspecting the aids, therefore cannot keep any of them.

Records from [facility] reviewed-patient has history of
Schizoaffective disorder-severe
DJD, scoliosis
Chronic pain syndrome
TBI with slurry speech
CVA
Hyperlipidemia
Iron deficiency anemia
GERD
Tonsillectomy
Allergies to Parlodel, Septra, vancomycin, sulfa, ceftazidime
She was admitted for bilateral lower extremity edema from chronic venous stasis was treated with Lasix. Echo in November 2022 ejection fraction 55%. Grade 1 diastolic dysfunction. Moderate TR. Mild MR.
She also has a history of iron deficiency anemia hemoglobin around 10. Last colonoscopy 2017 she was on iron sulfate as outpatient
Severe DJD of the right hip patient has seen orthopedics in the past and received right hip injection in June 2023.
Sleep apnea-she does not use CPAP at home
GERD
Schizoaffective disorder
Chronic pain syndrome
Hyperlipidemia not on any medicines
TBI
History of CVA not on aspirin or statin per patient's preference
Scoliosis
She had a chest x-ray done on August 06-showed scarring mild indistinction of the central pulmonary vascular markings stable cardiomegaly
Atherosclerosis
Discharge medicines as of August 06
Risperidone 3 mg p.o. daily
Lamotrigine 150 mg p.o. twice daily
Vitamin D3 1000 units daily
Lidocaine patch as needed for pain
Tylenol 650 mg every 6 hours as needed for pain
Celebrex 100 mg p.o. twice daily
Iron sulfate 325 mg daily
Omeprazole 40 mg daily
Patient was advised to follow-up with Dr. Kaiser at [facility]
Anticipated Discharge: Within 24 hours
Subjective/Interval History
-
Date of Service: August 26, 2023
No chest pain
No sob
No abd pain
Objective Data
-
Vital Signs:
Vital Signs
Temp Pulse Resp BP Pulse Ox
97.8 F 90 18 122/70 95
08/26/23 07:00 08/26/23 07:00 08/26/23 07:00 08/26/23 07:00 08/26/23 07:00
I&O
08/25/23 08/26/23 08/27/23
06:59 06:59 06:59
Intake Total 740 / 740
Balance 740 / 740
[2023-08-26 15:00] VITALS: BP 110/48
[2023-08-26] MEDS: LOVENOX 40 MG SC (17:13)
[2023-08-26] MEDS: RISPERDAL 1 MG PO (21:24)
[2023-08-26 23:35] VITALS: BP 101/57
[2023-08-27 06:00] VITALS: BMI 23.8
[2023-08-27 07:00] VITALS: BP 97/57
[2023-08-27] MEDS: PROTONIX 40 MG PO (07:39)
[2023-08-27] MEDS: ASPIR LOW (ENTERIC COATED) 81 MG PO (07:39)
[2023-08-27] MEDS: LAMICTAL 150 MG PO ×2 (07:39→21:53)
[2023-08-27] MEDS: CYANOCOBALAMIN 1000 MCG IM (07:40)
--- NOTE | 2023-08-27 10:09 | W.PN.HOSP.TC ---
Today's Communication/Plan
-
dc
Assessment / Plan
Assessment / Plan
77-year-old female presented to the emergency room with the help of EMS will drop her off in the ER. Patient states that she was admitted to [facility] it was a '1 day affair' and was discharged on Saturday. She thinks she came here on
Saturday but actually she was admitted on Saturday. She does not know what happened between Saturday and Saturday. She does not know any of her medicines. Does not know any of her medical conditions. States that she has itching of her legs. States that
she has difficulty ambulating. Denies any chest pain or shortness of breath but she is on oxygen.
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 He also notes that she was on lithium at 1 point
he is not sure about any of her medicines at this point. He stated that if she does not get her medicines she will go 'nuts'. He also confirmed that patient is a full code

Physical exam:
general: not in distress
CVS: S1-S2 normal
Chest: CTA B/L
Abdomen: Soft, NT / Bowel sounds present
Extremities: no edema or redness noted
[place]
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
Psych: no agitation, calm
Echo 08/20/2024 normal LV size. Ejection fraction 60 to 65%. Normal diastolic function. Mild TR. Pulmonary artery pressure was 36 mmHg.
Plan
#Acute hypoxic respiratory insufficiency
Pulmonary vascularity top normal size on x-ray
May be acute non cardiogenic
Has Normal systolic and diastolic function on ECHO here
Chronic venous stasis
S/P Lasix
Venous Doppler of lower extremity neg
Cellulitis being treated with Ancef-changed to Keflex
Surgigrip for legs
#Schizo affective disorder. After TBI
Continue Lamictal and risperidone
Risperidone was decreased here
Psyche felt dose was appropriate , will ask to re-evaluate
# IV iron infiltrate on 08/25
indurated lump
c/w warm compresses on right forearm
# Anemia-Replace low B12 and iron
#Chronic Leg pain and Back pain
Cant ambulate well
Uses walker to walk
PT OT eval noted
# GERD-PPI
# Atherosclerosis
# History of CVA-Aspirin
# Sleep apnea-not on CPAP
# Scoliosis/DJD
# DVT prophylaxis-Lovenox
# Full code
Total time spent to see the patient, examine the patient on the floor, review data and lab results, discuss treatment plan with patient, nursing staff around 45 minutes
Discussed with nursing
Pt waiting for rehab. But now says she wants to go home and havs some one at her home there waiting for her . They need to clean the house as she no longer can do it.
Hospitalist spoke to son and updated. Patient has had several aids in the past he states that patient becomes paranoid she does not take medicines and then she will start suspecting the aids, therefore cannot keep any of them.

Records from [facility] reviewed-patient has history of
Schizoaffective disorder-severe
DJD, scoliosis
Chronic pain syndrome
TBI with slurry speech
CVA
Hyperlipidemia
Iron deficiency anemia
GERD
Tonsillectomy
Allergies to Parlodel, Septra, vancomycin, sulfa, ceftazidime
She was admitted for bilateral lower extremity edema from chronic venous stasis was treated with Lasix. Echo in November 2022 ejection fraction 55%. Grade 1 diastolic dysfunction. Moderate TR. Mild MR.
She also has a history of iron deficiency anemia hemoglobin around 10. Last colonoscopy 2017 she was on iron sulfate as outpatient
Severe DJD of the right hip patient has seen orthopedics in the past and received right hip injection in June 2023.
Sleep apnea-she does not use CPAP at home
GERD
Schizoaffective disorder
Chronic pain syndrome
Hyperlipidemia not on any medicines
TBI
History of CVA not on aspirin or statin per patient's preference
Scoliosis
She had a chest x-ray done on August 06-showed scarring mild indistinction of the central pulmonary vascular markings stable cardiomegaly
Atherosclerosis
Discharge medicines as of August 06
Risperidone 3 mg p.o. daily
Lamotrigine 150 mg p.o. twice daily
Vitamin D3 1000 units daily
Lidocaine patch as needed for pain
Tylenol 650 mg every 6 hours as needed for pain
Celebrex 100 mg p.o. twice daily
Iron sulfate 325 mg daily
Omeprazole 40 mg daily
Patient was advised to follow-up with Dr. Kaiser at [facility]
Anticipated Discharge: Today
Subjective/Interval History
-
Date of Service: August 27, 2023
Afebrile
No hypotension
Objective Data
-
Vital Signs:
Vital Signs
Temp Pulse Resp BP Pulse Ox
98 F 50 18 97/57 96
08/27/23 07:00 08/27/23 07:00 08/27/23 07:00 08/27/23 07:00 08/27/23 07:00
I&O
08/26/23 08/27/23 08/28/23
06:59 06:59 06:59
Intake Total 740 / 740 240 / 240
Balance 740 / 740 240 / 240
--- NOTE | 2023-08-27 12:23 | W.PN.UPDATE ---
Update Note
Progress Note Update
Psychiatry asked to follow this pt, who has not been sleeping well, up most of last night making multiple requests/goal-driven. Discussed with nursing staff, reviewed discharge papers from recent admission at [facility]; pt was on
Risperidone 3 mg daily. Dose was tapered here and changed to HS due to sedation. Pt seen reclining in bed, alert, initially calm but became more irritable and demanding as the conversation continued, insisting on leaving today/wanting me to get PT
to come in right away, etc. No signs of EPS or sedation today.
Imp: Schizoaffective d/o by hx, becoming more irritable/ not sleeping with decreased Risperidone dose
Rec: Will increase Risperidone to 2 mg HS, ordering 0.5 mg po at 1 pm today x 1. Continue Lamotrigine
Will continue to follow
[2023-08-27] MEDS: RISPERDAL 0.5 MG PO (13:40)
[2023-08-27 16:19] VITALS: BP 110/59
--- NOTE | 2023-08-27 16:35 | CM ---
Spoke with Delfina WALDRON sent additional information faxed to [phone] as requested.
Spoke with patient explained level 2 assessment needed to be completed before going to SNF.
Brandee WALDRON proform level 2 MA 51 assessment.
After Level 2 done will need to locate SNF.
PLAN To SNF after level2 done and SNF located
[2023-08-27] MEDS: LOVENOX 40 MG SC (17:21)
[2023-08-27] MEDS: RISPERDAL 2 MG PO (21:54)
[2023-08-27] MEDS: TYLENOL 650 MG PO (23:32)
[2023-08-27 23:53] VITALS: BP 116/59
--- NOTE | 2023-08-28 04:43 | DOWNTIME ---
There was a [employer] Downtime on 08/28/2023 from 0111 to 08/28/2023 at 0405. Downtime documentation of patient's care, including medication administrations, has been reconciled in the electronic record per guidelines. Refer to the
patient's paper chart under the miscellaneous tab to see printed paper medication records and downtime forms.
[2023-08-28 06:00] VITALS: BMI 24.4
[2023-08-28 07:15] VITALS: BP 133/68
[2023-08-28] MEDS: LAMICTAL 150 MG PO ×2 (07:50→20:15)
[2023-08-28] MEDS: PROTONIX 40 MG PO (07:50)
[2023-08-28] MEDS: ASPIR LOW (ENTERIC COATED) 81 MG PO (07:50)
--- NOTE | 2023-08-28 09:21 | W.PN.HOSP.TC ---
Today's Communication/Plan
-
dc
Assessment / Plan
Assessment / Plan
77-year-old female presented to the emergency room with the help of EMS will drop her off in the ER. Patient states that she was admitted to [facility] it was a '1 day affair' and was discharged on Saturday. She thinks she came here on
Saturday but actually she was admitted on Saturday. She does not know what happened between Saturday and Saturday. She does not know any of her medicines. Does not know any of her medical conditions. States that she has itching of her legs. States that
she has difficulty ambulating. Denies any chest pain or shortness of breath but she is on oxygen.
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 He also notes that she was on lithium at 1 point
he is not sure about any of her medicines at this point. He stated that if she does not get her medicines she will go 'nuts'. He also confirmed that patient is a full code

Physical exam:
general: not in distress
CVS: S1-S2 normal
Chest: CTA B/L
Abdomen: Soft, NT / Bowel sounds present
Extremities: no edema or redness noted
[place]
WORKFORCE DEVELOPMENT ASSISTANT: Non focal exam
Psych: no agitation, calm
Echo 08/20/2024 normal LV size. Ejection fraction 60 to 65%. Normal diastolic function. Mild TR. Pulmonary artery pressure was 36 mmHg.
Plan
#Acute hypoxic respiratory insufficiency
Pulmonary vascularity top normal size on x-ray
May be acute non cardiogenic
Has Normal systolic and diastolic function on ECHO here
Chronic venous stasis
S/P Lasix
Venous Doppler of lower extremity neg
Cellulitis being treated with Ancef-changed to Keflex
Surgigrip for legs
#Schizo affective disorder. After TBI
Continue Lamictal and risperidone
Risperidone dose was adjusted and she seemed to do well.
# IV iron infiltrate on 08/25
indurated lump
c/w warm compresses on right forearm
# Anemia-Replace low B12 and iron
#Chronic Leg pain and Back pain
Cant ambulate well
Uses walker to walk
PT OT eval noted
# GERD-PPI
# Atherosclerosis
# History of CVA-Aspirin
# Sleep apnea-not on CPAP
# Scoliosis/DJD
# DVT prophylaxis-Lovenox
# Full code
Total time spent to see the patient, examine the patient on the floor, review data and lab results, discuss treatment plan with patient, nursing staff around 45 minutes
Discussed with nursing
Pt waiting for rehab. But now says she wants to go home and havs some one at her home there waiting for her . They need to clean the house as she no longer can do it.
Hospitalist spoke to son and updated. Patient has had several aids in the past he states that patient becomes paranoid she does not take medicines and then she will start suspecting the aids, therefore cannot keep any of them.

Records from [facility] reviewed-patient has history of
Schizoaffective disorder-severe
DJD, scoliosis
Chronic pain syndrome
TBI with slurry speech
CVA
Hyperlipidemia
Iron deficiency anemia
GERD
Tonsillectomy
Allergies to Parlodel, Septra, vancomycin, sulfa, ceftazidime
She was admitted for bilateral lower extremity edema from chronic venous stasis was treated with Lasix. Echo in November 2022 ejection fraction 55%. Grade 1 diastolic dysfunction. Moderate TR. Mild MR.
She also has a history of iron deficiency anemia hemoglobin around 10. Last colonoscopy 2017 she was on iron sulfate as outpatient
Severe DJD of the right hip patient has seen orthopedics in the past and received right hip injection in June 2023.
Sleep apnea-she does not use CPAP at home
GERD
Schizoaffective disorder
Chronic pain syndrome
Hyperlipidemia not on any medicines
TBI
History of CVA not on aspirin or statin per patient's preference
Scoliosis
She had a chest x-ray done on August 06-showed scarring mild indistinction of the central pulmonary vascular markings stable cardiomegaly
Atherosclerosis
Discharge medicines as of August 06
Risperidone 3 mg p.o. daily
Lamotrigine 150 mg p.o. twice daily
Vitamin D3 1000 units daily
Lidocaine patch as needed for pain
Tylenol 650 mg every 6 hours as needed for pain
Celebrex 100 mg p.o. twice daily
Iron sulfate 325 mg daily
Omeprazole 40 mg daily
Patient was advised to follow-up with Dr. Kaiser at [facility]
Anticipated Discharge: Today
Subjective/Interval History
-
Date of Service: August 28, 2023
No issues over night
slept well
Objective Data
-
Vital Signs:
Vital Signs
Temp Pulse Resp BP Pulse Ox
97.3 F 74 18 133/68 97
08/28/23 07:15 08/28/23 07:15 08/28/23 07:15 08/28/23 07:15 08/28/23 07:15
I&O
08/27/23 08/28/23 08/29/23
06:59 06:59 06:59
Intake Total 240 / 240 480 / 480
Balance 240 / 240 480 / 480
[2023-08-28] MEDS: CYANOCOBALAMIN 1000 MCG IM (09:38)
--- NOTE | 2023-08-28 09:47 | CM ---
Spoke with Delfina WALDRON sent additional information faxed to [phone] as requested.
Delfina has all information requested along with consents.
Spoke with patient explained level 2 assessment needed to be completed before going to SNF.
Brandee WALDRON proform level 2 MA 51 assessment.
After Level 2 done will need to locate SNF.
PLAN To SNF after level2 done and SNF located
--- NOTE | 2023-08-28 11:49 | W.PN.UPDATE ---
Update Note
Progress Note Update
patient seen chart reviewed. discussed w nursing. mrs hunter known to me. she is today awake and alert. explained to her the issue of 'level 2' when snf care is being sought. while last saturday she had not wanted to be discharged yet...today she
is anxious to get out of hospital and on way to snf and that does not seem to be happening fast enough. noted risperdal increased to 2 mg q hs over weekend. thus far she says she feels ok w that but nursing noted she was sleepy earlier this am.
when i saw her she was awake and alert. will continue to monitor. no med changes made today
[2023-08-28 12:01] VITALS: BP 109/59; PULSE 101
[2023-08-28 12:06] VITALS: BP 109/59
[2023-08-28 15:31] VITALS: BP 115/58
[2023-08-28] MEDS: LOVENOX 40 MG SC (17:16)
[2023-08-28] MEDS: TYLENOL 650 MG PO (20:18)
[2023-08-28] MEDS: RISPERDAL 2 MG PO (21:08)
[2023-08-28 23:41] VITALS: BP 105/51
[2023-08-29 06:00] VITALS: BMI 24.5
[2023-08-29 07:30] VITALS: BP 101/57
[2023-08-29] MEDS: LAMICTAL 150 MG PO ×2 (07:56→20:07)
[2023-08-29] MEDS: ASPIR LOW (ENTERIC COATED) 81 MG PO (07:57)
[2023-08-29] MEDS: PROTONIX 40 MG PO (07:57)
--- NOTE | 2023-08-29 09:38 | W.PN.HOSP.TC ---
Today's Communication/Plan
-
dc
Patient seems frustrated
Assessment / Plan
Assessment / Plan
77-year-old female presented to the emergency room with the help of EMS will drop her off in the ER. Patient states that she was admitted to [facility] it was a '1 day affair' and was discharged on Saturday. She thinks she came here on
Saturday but actually she was admitted on Saturday. She does not know what happened between Saturday and Saturday. She does not know any of her medicines. Does not know any of her medical conditions. States that she has itching of her legs. States that
she has difficulty ambulating. Denies any chest pain or shortness of breath but she is on oxygen.
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 He also notes that she was on lithium at 1 point
he is not sure about any of her medicines at this point. He stated that if she does not get her medicines she will go 'nuts'. He also confirmed that patient is a full code

Physical exam:
general: not in distress
CVS: S1-S2 normal
Chest: CTA B/L
Abdomen: Soft, NT / Bowel sounds present
Extremities: no edema or redness noted
[place]
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
Psych: no agitation, calm
Echo 08/20/2024 normal LV size. Ejection fraction 60 to 65%. Normal diastolic function. Mild TR. Pulmonary artery pressure was 36 mmHg.
Plan
#Acute hypoxic respiratory insufficiency
Pulmonary vascularity top normal size on x-ray
May be acute non cardiogenic
Has Normal systolic and diastolic function on ECHO here
Chronic venous stasis
S/P Lasix
Venous Doppler of lower extremity neg
Cellulitis being treated with Ancef-changed to Keflex
Surgigrip for legs
#Schizo affective disorder. After TBI
Continue Lamictal and risperidone
Risperidone dose was adjusted and she seemed to do well.
# IV iron infiltrate on 08/25
indurated lump
c/w warm compresses on right forearm
# Anemia-Replace low B12 and iron
#Chronic Leg pain and Back pain
Cant ambulate well
Uses walker to walk
PT OT eval noted
# GERD-PPI
# Atherosclerosis
# History of CVA-Aspirin
# Sleep apnea-not on CPAP
# Scoliosis/DJD
# DVT prophylaxis-Lovenox
# Full code
Total time spent to see the patient, examine the patient on the floor, review data and lab results, discuss treatment plan with patient, nursing staff around 45 minutes
Discussed with nursing
Pt waiting for rehab. But now says she wants to go home and havs some one at her home there waiting for her . They need to clean the house as she no longer can do it.
Hospitalist spoke to son and updated. Patient has had several aids in the past he states that patient becomes paranoid she does not take medicines and then she will start suspecting the aids, therefore cannot keep any of them.

Records from [facility] reviewed-patient has history of
Schizoaffective disorder-severe
DJD, scoliosis
Chronic pain syndrome
TBI with slurry speech
CVA
Hyperlipidemia
Iron deficiency anemia
GERD
Tonsillectomy
Allergies to Parlodel, Septra, vancomycin, sulfa, ceftazidime
She was admitted for bilateral lower extremity edema from chronic venous stasis was treated with Lasix. Echo in November 2022 ejection fraction 55%. Grade 1 diastolic dysfunction. Moderate TR. Mild MR.
She also has a history of iron deficiency anemia hemoglobin around 10. Last colonoscopy 2017 she was on iron sulfate as outpatient
Severe DJD of the right hip patient has seen orthopedics in the past and received right hip injection in June 2023.
Sleep apnea-she does not use CPAP at home
GERD
Schizoaffective disorder
Chronic pain syndrome
Hyperlipidemia not on any medicines
TBI
History of CVA not on aspirin or statin per patient's preference
Scoliosis
She had a chest x-ray done on August 06-showed scarring mild indistinction of the central pulmonary vascular markings stable cardiomegaly
Atherosclerosis
Discharge medicines as of August 06
Risperidone 3 mg p.o. daily
Lamotrigine 150 mg p.o. twice daily
Vitamin D3 1000 units daily
Lidocaine patch as needed for pain
Tylenol 650 mg every 6 hours as needed for pain
Celebrex 100 mg p.o. twice daily
Iron sulfate 325 mg daily
Omeprazole 40 mg daily
Patient was advised to follow-up with Dr. Kaiser at [facility]
Anticipated Discharge: Today
Subjective/Interval History
-
Date of Service: August 29, 2023
Patient is frustrated being in hospital
Objective Data
-
Vital Signs:
Vital Signs
Temp Pulse Resp BP Pulse Ox
97.9 F 88 18 101/57 96
08/29/23 07:30 08/29/23 07:30 08/29/23 07:30 08/29/23 07:30 08/29/23 07:30
I&O
08/28/23 08/29/23 08/30/23
06:59 06:59 06:59
Intake Total 480 / 480 840 / 840
Output Total 500 / 500
Balance 480 / 480 340 / 340
--- NOTE | 2023-08-29 10:57 | CM ---
Addendum entered by Sri Jerez RN 08/29/23 14:51:
Called and spoke with Amanda from [facility] she said that she needed PT OT notes progress, Psychiatry notes and PASSR.All faxed to [phone] as requested.
Amanda said if patient has not had a recent Psychiatric stay she does not need a Level 2 assessment.
Amanda from [facility] will can will determination.
Addendum entered by Sri Jerez RN 08/29/23 14:13:
Spoke with Amanda from [facility] [phone] option 1. Asked her to assess patient in care port [facility] and call back if she can accept her.
PLAN IF accepted [facility]
Original Note:
Delfina [facility] faxed to [phone] said level 2 assessment will be done 09/03/23. CM director Amy khan who spoke with Chandrika at [facility] for a sooner time.
Pt anxious for rehab. Pt requested [facility] LM with Amanda [phone] and sent update in care port.
Spoke with patient explained level 2 assessment needed to be completed before going to SNF.
PLAN To SNF after level2 done and SNF located
--- NOTE | 2023-08-29 12:00 | W.PN.UPDATE ---
Update Note
Progress Note Update
patient seen chart reviewed. discussed w nursing and with cm who was with me for part of the time i met with mrs rodrigues. the patient is aggravated that she is still here. she wants snf at either [facility] or a facility across from
[facility]. cm has already spoken to them and it looks like a real possibility. we were awaiting the level two assessment but not clear this is needed for a facility in [place]. cm will checki. did
not make any changes in meds today. patient is appearing overall better compared to admission. she says she feels '80 percent better' as far as leg issues go.
[2023-08-29 15:16] VITALS: BP 123/71
[2023-08-29] MEDS: LOVENOX 40 MG SC (17:32)
[2023-08-29] MEDS: RISPERDAL 2 MG PO (20:08)
[2023-08-29] MEDS: BENADRYL 25 MG PO (21:13)
[2023-08-29 23:53] VITALS: BP 102/61
[2023-08-30 06:00] VITALS: BMI 22.5
--- NOTE | 2023-08-30 09:03 | CM ---
Addendum entered by Nasra Gonzales 08/30/23 11:37:
Patient accepted and physician notified by nursing.
Addendum entered by Nasra Gonzales 08/30/23 11:12:
Yaz from [facility] [phone] her all requested documentations. Pending review with Amanda at [facility] patient is tentatively accepted. CM awaiting confirmation. Please call report [phone] prompt 0 to paper cup handle machine operator for
transfer to appropriate unit/ fax clinicals to [phone].
Discharge summary/orders to Amanda # [phone]/fax [phone].
Original Note:
CM called to [facility] to follow up on additional clinical informtion faxed to them yesterday. JOHNATHAN left requesting update.
[2023-08-30] MEDS: PROTONIX 40 MG PO (09:09)
[2023-08-30] MEDS: LAMICTAL 150 MG PO (09:10)
[2023-08-30] MEDS: ASPIR LOW (ENTERIC COATED) 81 MG PO (09:14)
--- NOTE | 2023-08-30 09:51 | W.PN.UPDATE ---
Update Note
Progress Note Update
patient seen chart reviewed. mrs rodrigues was very very irritable this am upon being informed that she was not likely to be discharged today. it was explained again to her that we must await the level two assessment. she apologized for her irritation
which is understandable at this point as she has been cleared for dc for some days but getting the level two is taking a lot of time. did not make any changes in her medication. she does seem better later in the day but still yesterday was upset
that she remains hospitalized.
--- NOTE | 2023-08-30 09:58 | W.PN.HOSP.TC ---
Addendum entered and electronically signed by Jayden Rodas MD 08/30/23 13:00:
Addendum
Discussed with case briefer and nursing staff.
Patient has a bed in the longterm facility that she desired.
Total discharge time spent to see the patient, examine the patient on the floor, review data and lab results, discuss discharge plan with patient, case briefer, nursing staff around 65 minutes
Original Note:
Today's Communication/Plan
-
dc
Assessment / Plan
Assessment / Plan
77-year-old female presented to the emergency room with the help of EMS will drop her off in the ER. Patient states that she was admitted to [facility] it was a '1 day affair' and was discharged on Saturday. She thinks she came here on
Saturday but actually she was admitted on Saturday. She does not know what happened between Saturday and Saturday. She does not know any of her medicines. Does not know any of her medical conditions. States that she has itching of her legs. States that
she has difficulty ambulating. Denies any chest pain or shortness of breath but she is on oxygen.
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 He also notes that she was on lithium at 1 point
he is not sure about any of her medicines at this point. He stated that if she does not get her medicines she will go 'nuts'. He also confirmed that patient is a full code

Physical exam:
general: not in distress
CVS: S1-S2 normal
Chest: CTA B/L
Abdomen: Soft, NT / Bowel sounds present
Extremities: no edema or redness noted
[place]
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
Psych: no agitation, calm
Echo 08/20/2024 normal LV size. Ejection fraction 60 to 65%. Normal diastolic function. Mild TR. Pulmonary artery pressure was 36 mmHg.
Plan
#Acute hypoxic respiratory insufficiency
Pulmonary vascularity top normal size on x-ray
May be acute non cardiogenic
Has Normal systolic and diastolic function on ECHO here
Chronic venous stasis
S/P Lasix
Venous Doppler of lower extremity neg
Cellulitis being treated with Ancef-changed to Keflex
Surgigrip for legs
#Schizo affective disorder. After TBI
Continue Lamictal and risperidone
Risperidone dose was adjusted and she seemed to do well.
# IV iron infiltrate on 08/25
indurated lump, getting smaller now and non tender.
# Anemia-Replace low B12 and iron
#Chronic Leg pain and Back pain
Cant ambulate well
Uses walker to walk
PT OT eval noted
# GERD-PPI
# Atherosclerosis
# History of CVA-Aspirin
# Sleep apnea-not on CPAP
# Scoliosis/DJD
# DVT prophylaxis-Lovenox
# Full code
Total time spent to see the patient, examine the patient on the floor, review data and lab results, discuss treatment plan with patient, nursing staff around 45 minutes
Discussed with nursing
Pt waiting for rehab. But now says she wants to go home and havs some one at her home there waiting for her . They need to clean the house as she no longer can do it.
Hospitalist spoke to son and updated. Patient has had several aids in the past he states that patient becomes paranoid she does not take medicines and then she will start suspecting the aids, therefore cannot keep any of them.

Records from [facility] reviewed-patient has history of
Schizoaffective disorder-severe
DJD, scoliosis
Chronic pain syndrome
TBI with slurry speech
CVA
Hyperlipidemia
Iron deficiency anemia
GERD
Tonsillectomy
Allergies to Parlodel, Septra, vancomycin, sulfa, ceftazidime
She was admitted for bilateral lower extremity edema from chronic venous stasis was treated with Lasix. Echo in November 2022 ejection fraction 55%. Grade 1 diastolic dysfunction. Moderate TR. Mild MR.
She also has a history of iron deficiency anemia hemoglobin around 10. Last colonoscopy 2017 she was on iron sulfate as outpatient
Severe DJD of the right hip patient has seen orthopedics in the past and received right hip injection in June 2023.
Sleep apnea-she does not use CPAP at home
GERD
Schizoaffective disorder
Chronic pain syndrome
Hyperlipidemia not on any medicines
TBI
History of CVA not on aspirin or statin per patient's preference
Scoliosis
She had a chest x-ray done on August 06-showed scarring mild indistinction of the central pulmonary vascular markings stable cardiomegaly
Atherosclerosis
Discharge medicines as of August 06
Risperidone 3 mg p.o. daily
Lamotrigine 150 mg p.o. twice daily
Vitamin D3 1000 units daily
Lidocaine patch as needed for pain
Tylenol 650 mg every 6 hours as needed for pain
Celebrex 100 mg p.o. twice daily
Iron sulfate 325 mg daily
Omeprazole 40 mg daily
Patient was advised to follow-up with Dr. Kaiser at [facility]
Anticipated Discharge: Today
Subjective/Interval History
-
Date of Service: August 30, 2023
No chest pain
No sob
Objective Data
-
Vital Signs:
Vital Signs
Temp Pulse Resp BP Pulse Ox
98.2 F 75 18 102/61 95
08/29/23 23:53 08/29/23 23:53 08/29/23 23:53 08/29/23 23:53 08/29/23 23:53
I&O
08/29/23 08/30/23 08/31/23
06:59 06:59 06:59
Intake Total 840 / 840 0 / 1680
Output Total 500 / 500
Balance 340 / 340 1680 / 1680
[2023-08-30 10:27] VITALS: BP 89/61
--- NOTE | 2023-08-30 11:37 | W.DCSUMMARY ---
Discharge Summary
Discharge Data
Date of Admission: 08/19/23
Date of Discharge: 08/30/23
-
Pending Results: No
Hospital Course
77 years old female was brought in by ambulance to the hospital. Patient was at her private residence and called the ambulance because she could not take care of herself anymore. She reported hip pain and weakness. Patient was noted to be
lethargic upon admission. Patient reported that she was in [facility]. Records from [facility] showed history of severe schizoaffective disorder, degenerative joint disease, scoliosis, chronic pain syndrome, traumatic
brain injury with slurred speech at time, history of stroke, hyperlipidemia, iron deficiency anemia, gastroesophageal reflux disease. Patient was taking risperidone and Lamictal. She did not have leukocytosis or fever. Basic metabolic panel was
within normal range, creatinine was 0.6. Patient was found to have mild acute hypoxic respiratory insufficiency that later resolved. Chest radiography did not show acute finding. Echocardiogram showed normal left ventricular ejection fraction 60
to 65% with normal diastolic function. No significant valvular heart disease. Patient complained of leg pain. Vascular ultrasound did not show deep venous thrombosis in lower extremities. Head scan showed small area of encephalomalacia and/or
old infarction in the right parietal lobe with no acute intracranial abnormality. Hip radiography of both sides showed degenerative changes of the right hip and status post left hip arthroplasty in position. Patient was seen by psychiatrist. Her
medications were adjusted. She remained hemodynamically stable. Patient became anxious and frustrated because of prolonged hospital stay while consumer experience consultant was working on a safe discharge plan . Physical therapy recommended pen[facility]ent[facility] facility
placement. Patient wanted to go to [facility]. Patient was discharged to the [facility] in a stable condition.
Discharge Plan
-
Patient Disposition: Fdc/SNF
Discharge Diagnosis/Procedures: Mild cellulitis of lower extremity, venous stasis-chronic, anemia, schizoaffective disorder, DJD, scoliosis, chronic pain syndrome, TBI with slurry speech now, GERD
Condition: Good
Diet: 2 Gram Sodium
Activity: With assistance and As tolerated
Driving Restrictions: No driving
Other Services: VN
Referrals:
Arianna Pena, [Family Provider] - in less than 1 week
Prescriptions:
New
aspirin 81 mg Tablet,Delayed Release (Dr/Ec)
81 mg PO DAILY Qty: 30 0RF
risperidone 2 mg Tablet
2 mg PO HS Qty: 30 0RF
multivitamin Tablet
1 tab PO DAILY Qty: 30 0RF
senna 8.6 mg capsule
8.6 mg PO HS Qty: 30 0RF
Continued
omeprazole 40 mg capsule,delayed release(DR/EC)
40 mg PO DAILY
furosemide 20 mg tablet
20 mg PO DAILY
lamotrigine 150 mg tablet
150 mg PO BID Qty: 0 0RF
Discontinued
furosemide 40 mg tablet
40 mg PO DAILY
risperidone 3 mg tablet
3 mg PO HS
Discharge Orders:
Discharge Patient (As Directed); Ordered 08/30/23
Ordered By: Jayden Rodas
[2023-08-30] MEDS: PREVNAR 20 0.5 ML IM (14:00)
[2023-08-30] MEDS: FLUZONE HIGH-DOSE QUAD 2023-24 0.699999999999999956 ML IM (14:06)
[2023-08-30 16:41] VITALS: BP 130/75
--- NOTE | 2023-08-30 17:20 | PTCARENOTE ---
Patient discharged to facility. Transported by Ambulance.
--- NOTE | 2023-08-30 17:25 | PTCARENOTE ---
Called and gave report to [facility].
== END 2023-08-30 17:31 | DRG 602 ==
LOC: 4 EAST ACU 23:11
PROVIDERS: Emergency Medicine; Hospitalist; Registered Nurse; ADMITTING PHYSICIAN Internal Medicine; ATTENDING PHYSICIAN Internal Medicine; EMERGENCY PHYSICIAN Emergency Medicine; FAMILY PHYSICIAN Family Medicine; OTHER PHYSICIAN Psychiatry & Neurology Psychiatry
DX: L03.115 Cellulitis of right lower limb (principal); G93.41 Metabolic encephalopathy; R62.7 Adult failure to thrive; D64.9 Anemia, unspecified; R09.02 Hypoxemia; R06.89 Other abnormalities of breathing; K21.9 Gastro-esophageal reflux disease without esophagitis; F25.9 Schizoaffective disorder, unspecified; G89.4 Chronic pain syndrome; M19.90 Unspecified osteoarthritis, unspecified site; M41.9 Scoliosis, unspecified; I87.8 Other specified disorders of veins; Z68.22 Body mass index [BMI] 22.0-22.9, adult; Z86.73 Personal history of transient ischemic attack (TIA), and cerebral infarction without residual deficits; L03.116 Cellulitis of left lower limb; I87.2 Venous insufficiency (chronic) (peripheral); E78.5 Hyperlipidemia, unspecified
CPT/HCPCS: 70450; 71045; 73523; 80048; 80053; 81003; 82607; 82728; 83540; 83550; 83880; 84425; 84443; 85025; 85027; 87040; 93005; 93306; 93970; 96361; 96374; 96375; 97110; 97116; 97163; 97166; 97530; 97535; 99285; J2916

== ENCOUNTER 2025-03-28 20:46 | Observation (INO) | payer OTHER, MEDICARE, SELFPAY ==
[2025-03-28] VITALS (12 sets, daily range): BP systolic 85–126; BP diastolic 40–67; BMI 28.4; BMI 28.0
[2025-03-28 17:02] LABS: Urine Character Clear (Clear)
[2025-03-28 17:02] LABS: Glucose - Point of Care 165 mg/dl (70-99)
[2025-03-28 17:06] LABS: Hematocrit 33.7 % (37.0-47.0); Hemoglobin 10.6 g/dL (12.0-16.0); Mean Corp Hgb Conc. 31.5 g/dL (33.0-37.0); Mean Corpuscular Volume 90.1 fL (81.0-99.0); Nucleated Red Blood Cells % 0 %; Platelet Count 262 10^3/uL (130-400); Red Cell Dist. Width 13.9 % (11.5-14.5)
[2025-03-28 17:16] LABS: ALT (SGPT) 18 U/L (0-35); AST (SGOT) 19 U/L (14-36); Albumin 3.9 g/dl (3.5-5.0); Alkaline Phosphatase 87 U/L (38-126); Blood Urea Nitrogen 16 mg/dl (7-17); Calcium 9.4 mg/dl (8.4-10.2); Carbon Dioxide 29 mmol/L (22-30); Chloride 104 mmol/L (98-107); Estimated Creatinine Clearance 62 ml/min; Glucose 141 mg/dl (70-99); Potassium 4.2 mmol/L (3.5-5.1); Sodium 139 mmol/L (135-145); Total Protein 6.6 g/dl (6.3-8.2); eGFR > 60.00
--- NOTE | 2025-03-28 17:59 | ED.GENMED ---
History of Present Illness
<Yossi Mckinley PA-C - Last Filed: 03/28/25 20:50>
General
Chief Complaint: Failure to Thrive
Source: patient and ambulance crew
Time Seen by Provider: 03/28/25 17:17
History of Present Illness
History of Present Illness:
79-year-old female with past medical history of previous CVA presenting to the ER with EMS for evaluation of what they described to be failure to thrive. EMS notes that they got 2 separate calls from the patient today after the patient had fallen
out of her wheelchair, after the first visit patient declined coming to the emergency department, after the second fall patient was transported here. EMS states that patient ultimately did not want to come and only wanted to help being fed. EMS
reports that there was no food in the house and that there was a food delivery that was left outside for an unknown amount of time but the food had spoiled. Patient is wheelchair-bound, lives alone. She reports that she bathes herself and used to
have an aide come to the house to help but currently does not have this. Presently patient is without physical concerns. By the time I entered the room patient had eaten a lunch tray and has no other physical concerns presently.
Past History
<Yossi Mckinley PA-C - Last Filed: 03/28/25 20:50>
Past History
ED Past Medical History: CVA, Psychiatric and Other (Venous stasis)
ED Past Surgical History: None
Social History
Tobacco: Non-smoker
Alcohol: None
Drug: None
Personal: Single
Living: alone
Employment: Not employed
Review of Systems
<Yossi Mckinley PA-C - Last Filed: 03/28/25 20:50>
Review of Systems
All Other Systems: ROS reviewed and negative except as documented in HPI and ROS
Phy Exam
<Yossi Mckinley PA-C - Last Filed: 03/28/25 20:50>
Physical Exam
Physical Exam:
GENERAL: Alert , in no apparent distress
HEAD: Normocephalic atraumatic
EYE: conjunctiva clear
NECK: Supple
ENT: o/p clr, mmm.
CARDIAC: Regular rate and rhythm
LUNGS: Clear breath sounds bilaterally, no acute respiratory distress, no wheezes/rales/rhonchi
NEUROLOGICAL: Alert and oriented
SKIN: Warm and dry, skin intact.
MUSCULOSKELETAL: well perfused.
PSYCH: Normal and appropriate interaction.
Scores
<Yossi Mckinley PA-C - Last Filed: 03/28/25 20:50>
Heart Failure Risk
Heart Failure Risk Score: Not Applicable
Heart Score for Chest Pain Patients
STEMI patient?: Not applicable
Withdrawal Assessment of Alcohol
Withdrawal Assessment Completed?: Not applicable
Course
<Yossi Mckinley PA-C - Last Filed: 03/28/25 20:50>
Orders/Labs/Results
Orders:
Orders
03/28/25 Breakfast
Regular
At Your Request: Limited Participation
Does patient need a safe tray?: No
03/28/25 16:51
Complete Blood Count/With Diff Urgent
Comprehensive Metabolic Panel Urgent
NT-proBNP Urgent
TSH Reflex To Free T4 Urgent
Comment: ADDON
Urinalysis Reflex To Culture Urgent
Date Specimen was Collected: 03/28/25
Time Specimen was Collected: 16:48
Comment: straight cath
03/28/25 17:18
CT Head W/o Iv Contrast Urgent
Comment:
Reason For Exam: 2 falls, weakness
03/28/25 18:10
Electrocardiogram (*1) Urgent
Reason for Study: Fatigue / Weakness
EKG- Treatment ONCE
03/28/25 20:02
0.9% Sodium Chloride 1000 ml [Nss] 1,000 ml IV BOLUS
03/28/25 20:12
Lactic Acid Q4H
Comment: CANCEL 2nd LACTIC ACID IF 1st LACTIC ACID IS LESS THAN 2
Blood Culture Q30M
BILL Source: Blood/Venous
Specimen Description:
Blood Culture Q30M
BILL Source: Blood/Venous
Specimen Description:
03/28/25 20:26
US Periph Venous LOWER Ext LT Urgent
Comment:
Reason For Exam: Calf Pain, Edema
03/28/25 20:29
Admit/Transfer Patient As Directed
Co-Sign Provider:
Level of Care: Observation services
Assign to:: Telemetry
Physician / Group: Sacha
Diagnosis: Failure to Thrive, Fall at Home
Reason for Telemetry: Syncope
Date to Stop Telemetry: 03/30/25
Time to Stop Telemetry: 11:00
Code Status As Directed
Resuscitation Status: Full Code
PRN Pain Medication Management As Directed
May give lesser potent ordered pain med per pt: Yes
preference::
Protocol:: Medication orders for pain may be administered in a
manner that supports deferring to patient preference
when the pt is:
- Requesting an ordered lesser potent pain medication.
Least to most potent pain medications are defined
as: acetaminophen < NSAID < tramadol < opioids
(morphine, oxycodone, hydromorphone).
- Requesting a lesser dose of the same medication IF
ORDERED.
- Requesting a less intrusive route of administration
if both routes are prescribed by the provider (PO <
IV).
03/28/25 21:20
CPK [Creatine Phosphokinase] Urgent
03/28/25 22:19
Acetaminophen [Tylenol] 650 mg PO Q4HPRN PRN
03/28/25 22:19
Case Management Consult ONCE
Case Management Consult: Discharge Planning
Activity As Directed
Activity Level: Ambulate
With Assistance
I/O [Intake/ Output] As Directed
Frequency: Per unit guidelines
Vital Signs As Directed
Frequency: Per unit guidelines
Weight As Directed
Frequency: Daily
Oxygen Therapy [O2 Therapy] [RESP] Routine
Titrate/Wean O2 to maintain O2 sat greater than (%): 94
Ot Eval And Treat Routine
PT Consult [Pt Eval And Treat] Routine
Activity Level: Ambulate
With Assistance
DX Deep Vein Thrombosis Video Routine
03/29/25 06:00
Basic Metabolic Panel IN AM
Complete Blood Count/No Diff IN AM
03/29/25 18:00
Enoxaparin Sodium [Lovenox] 40 mg SC QPM
03/30/25 11:00
DC Protocol for Telemetry ONCE
Abnormal Lab Results
03/28/25 03/28/25
16:51 17:00
RBC 3.74 L 10^6/uL
(4.20-5.40)
Hgb 10.6 L g/dL
(12.0-16.0)
Hct 33.7 L %
(37.0-47.0)
MCHC 31.5 L g/dL
(33.0-37.0)
Monocytes % 10.1 H %
(1.7-9.3)
Glucose 141 H mg/dl
(70-99)
POC Glucose 165 H mg/dl
(70-99)
03/28/25 16:51
03/28/25 16:51
Vital Signs
Initial and Last Documented VS:
Initial Vital Signs
Temp Pulse Resp BP Pulse Ox
98.1 F 88 24 126/67 99
03/28/25 16:33 03/28/25 16:33 03/28/25 16:33 03/28/25 16:33 03/28/25 16:33
Last Documented Vital Signs
Temp Pulse Resp BP Pulse Ox
98.1 F 86 20 106/40 96
03/28/25 16:33 03/28/25 22:00 03/28/25 22:00 03/28/25 21:45 03/28/25 20:15
<Serge Velazquez MD - Last Filed: 03/28/25 23:06>
Orders/Labs/Results
Orders:
Orders
03/28/25 Breakfast
Regular
At Your Request: Limited Participation
Does patient need a safe tray?: No
03/28/25 16:51
Complete Blood Count/With Diff Urgent
Comprehensive Metabolic Panel Urgent
NT-proBNP Urgent
TSH Reflex To Free T4 Urgent
Comment: ADDON
Urinalysis Reflex To Culture Urgent
Date Specimen was Collected: 03/28/25
Time Specimen was Collected: 16:48
Comment: straight cath
03/28/25 17:18
CT Head W/o Iv Contrast Urgent
Comment:
Reason For Exam: 2 falls, weakness
03/28/25 18:10
Electrocardiogram (*1) Urgent
Reason for Study: Fatigue / Weakness
EKG- Treatment ONCE
03/28/25 20:02
0.9% Sodium Chloride 1000 ml [Nss] 1,000 ml IV BOLUS
03/28/25 20:12
Lactic Acid Q4H
Comment: CANCEL 2nd LACTIC ACID IF 1st LACTIC ACID IS LESS THAN 2
Blood Culture Q30M
BILL Source: Blood/Venous
Specimen Description:
Blood Culture Q30M
BILL Source: Blood/Venous
Specimen Description:
03/28/25 20:26
US Periph Venous LOWER Ext LT Urgent
Comment:
Reason For Exam: Calf Pain, Edema
03/28/25 20:29
Admit/Transfer Patient As Directed
Co-Sign Provider:
Level of Care: Observation services
Assign to:: Telemetry
Physician / Group: Sacha
Diagnosis: Failure to Thrive, Fall at Home
Reason for Telemetry: Syncope
Date to Stop Telemetry: 03/30/25
Time to Stop Telemetry: 11:00
Code Status As Directed
Resuscitation Status: Full Code
PRN Pain Medication Management As Directed
May give lesser potent ordered pain med per pt: Yes
preference::
Protocol:: Medication orders for pain may be administered in a
manner that supports deferring to patient preference
when the pt is:
- Requesting an ordered lesser potent pain medication.
Least to most potent pain medications are defined
as: acetaminophen < NSAID < tramadol < opioids
(morphine, oxycodone, hydromorphone).
- Requesting a lesser dose of the same medication IF
ORDERED.
- Requesting a less intrusive route of administration
if both routes are prescribed by the provider (PO <
IV).
03/28/25 21:20
CPK [Creatine Phosphokinase] Urgent
03/28/25 22:19
Acetaminophen [Tylenol] 650 mg PO Q4HPRN PRN
03/28/25 22:19
Case Management Consult ONCE
Case Management Consult: Discharge Planning
Activity As Directed
Activity Level: Ambulate
With Assistance
I/O [Intake/ Output] As Directed
Frequency: Per unit guidelines
Vital Signs As Directed
Frequency: Per unit guidelines
Weight As Directed
Frequency: Daily
Oxygen Therapy [O2 Therapy] [RESP] Routine
Titrate/Wean O2 to maintain O2 sat greater than (%): 94
Ot Eval And Treat Routine
PT Consult [Pt Eval And Treat] Routine
Activity Level: Ambulate
With Assistance
DX Deep Vein Thrombosis Video Routine
03/29/25 06:00
Basic Metabolic Panel IN AM
Complete Blood Count/No Diff IN AM
03/29/25 18:00
Enoxaparin Sodium [Lovenox] 40 mg SC QPM
03/30/25 11:00
DC Protocol for Telemetry ONCE
Abnormal Lab Results
03/28/25 03/28/25
16:51 17:00
RBC 3.74 L 10^6/uL
(4.20-5.40)
Hgb 10.6 L g/dL
(12.0-16.0)
Hct 33.7 L %
(37.0-47.0)
MCHC 31.5 L g/dL
(33.0-37.0)
Monocytes % 10.1 H %
(1.7-9.3)
Glucose 141 H mg/dl
(70-99)
POC Glucose 165 H mg/dl
(70-99)
03/28/25 16:51
03/28/25 16:51
Vital Signs
Initial and Last Documented VS:
Initial Vital Signs
Temp Pulse Resp BP Pulse Ox
98.1 F 88 24 126/67 99
03/28/25 16:33 03/28/25 16:33 03/28/25 16:33 03/28/25 16:33 03/28/25 16:33
Last Documented Vital Signs
Temp Pulse Resp BP Pulse Ox
98.1 F 86 20 106/40 96
03/28/25 16:33 03/28/25 22:00 03/28/25 22:00 03/28/25 21:45 03/28/25 20:15
<Yossi Mckinley PA-C - Last Filed: 03/28/25 20:50>
MDM/Problems Addressed
Differential Diagnosis Includes:
Failure to thrive
Electrolyte imbalance
Anemia
UTI
CVA
Deconditioning
MDM/Problems Addressed:
79-year-old female, wheelchair-bound presenting to the ER for with EMS from home where she is permanently wheelchair-bound, lives alone, multiple falls out of the wheelchair today. I discussed with patient that at this time I do not feel it would
be safe for her to be discharged home. Workup was initiated on arrival and overall is reassuring. She is hemodynamically stable. I do feel patient needs either further care/help at home or she may need to be placed at a long-term care facility.
Will order case management consult. CT scan pending.
<Yossi Mckinley PA-C - Last Filed: 03/28/25 20:50>
*Radiology
Radiology exam reviewed: radiology read reviewed
*Pulse Oximetry
SaO2: 98
Oxygen Mode of Delivery: Room air
Patient hypoxic: no
*EKG
Heart Rate: 74
Rate: normal
Rhythm: sinus
[place]: normal axis
Ischemia: no ischemia
*Critical Care Note
Total Time (30-74mins, 75-104mins- exclusive of procedures): Not Applicable
<IRVING Etienne Last Filed: 03/28/25 20:50>
Patient Management
Discussion with other providers: Hospitalist
Escalation/DeEscalation of care consider admission/obs:
Patient's workup is largely unremarkable, hospitalist team accepts for continued evaluation and treatment.
Shortly after admitting the patient, I was informed by nursing staff that patient's blood pressure became hypotensive. I added on lactic acid and blood cultures to the workup and treated the hypotension with IV fluids with good response. Patient
continued to mentate properly and be in no acute distress, she had tolerated both solids and liquids since arriving to the ER without any difficulty
ED Attending Note
<IRVING Etienne Last Filed: 03/28/25 20:50>
-
Portions of this chart may have been created with voice recognition software.� Occasional wrong word or��sound alike� substitutions may have occurred due to the inherent limitations of voice recognition software.
<Serge Velazquez MD - Last Filed: 03/28/25 23:06>
ED Attending Note
Patient seen and examined by attending physician: Yes
ED Attending Note:
Patient with history of CVA and currently wheelchair-bound, presents to ED after multiple falls at home, out of her wheelchair. Patient had called 911 on multiple occasions for lift assistance. Per paramedics, and patient's household, there were
no food items to be found, but there were already prepared food outside the house, which may have been delivered, but already had spoiled. Upon arrival, patient is somnolent but easily arousable, and offers no additional complaints. Denies recent
illness. Denies headache. Denies coughing. Denies vomiting or diarrhea. Patient does report decreased appetite. Patient unable to recall her last meal.
Physical Exam
General: no apparent distress, not acutely ill. afebrile. weak appearing
Head: nc/at. eomi
Neck: supple. normal range of motion
Heart: s1/s2 regular rate and rhythm
Lungs: no acute respiratory distress. clear bilaterally
Abdomen: normal bowel sounds. not tender.
Neuro: alert and oriented x 3. no focal deficit
Skin: no rash
Psychiatric: well kept. interactive and cooperative
Extremities: LE edema, L>R.
History and exam concerning for dehydration and malnourishment, as patient appears to be unable to take care of herself at home. As such, patient will be admitted for IV antibiotics and case management consultation. During observation, patient
noted to become hypotensive. As such, additional IV fluids ordered and blood culture ordered as well.
Discharge Plan
Departure
Patient Disposition: Admit
Date of Disposition: 03/28/25
Time of Disposition: 19:53
Presentation/result/management discussed w/ accepting MD/DO: Hospitalist
Discharge Problem:
Multiple falls, Generalized weakness
Interventions
Interventions:
*Risk Screen - Suicide Last Done: 03/28/25 16:32
*General Assessment Last Done: 03/28/25 16:33
*Neglect/Abuse Screening Last Done: 03/28/25 16:32
*ED- Fall Risk Assessment Last Done: 03/28/25 16:33
*ED COVID-19 Vaccine History Last Done: 03/28/25 16:33
*Nursing Disposition Last Done: 03/28/25 22:04
Discharge Date and Time
Discharge Date/Time: 03/28/25 22:14
[2025-03-28] MEDS: NSS 1000 IV (20:15)
--- NOTE | 2025-03-28 20:31 | HPS.HSE ---
Family Physician
-
Family Physician: NOT KNOW UNKNOWN - PT DOES
Chief Complaint
-
Weakness, Falls
History of Present Illness
Patient is a 79y F with PMH significant for schizoaffective disorder, prior CVA and chronic ambulatory dysfunction who presents to ED complaining of generalized weakness, failure to thrive and falls. Patient states that she fell out of bed this
AM and later slid out of her wheelchair. Both occurred while trying to transfer. She does not ambulate at baseline. Patient denies any pain after the falls. She states that she was on the floor for about an hour after the second fall.
Patient reports that she has felt more weak recently and having issues getting around.
She denies any focal complaints including headache, fevers / chills, cough / SOB, chest pain, abdominal pain, N/V/D, etc.
Patient was admitted in August 2023 with a similar presentation. She was discharged to [facility] at that time. She has since returned to her apartment in [place] where she lives with her cat.
Medical History
Past Medical History
Past Medical History: Reports Other
Additional Past Medical History:
Schizoaffective Disorder
Chronic Ambulatory Dysfunction
Prior CVA
History of TBI
Chronic Anemia
GERD
Past Surgical History: Reports Other
Additional Past Surgical History:
None known
Social History
Tobacco: Non-smoker
Alcohol: None
Drug: None
Living: Alone
Family History
Family History: Not pertinent
Allergies / Home Medications
Allergies reflects when Allergies were last updated in [facility].
Home Medications with original date entered in [facility]
Allergy/Medication List:
Patient unable to confirm all current meds / doses.
Will need formal med rec in the AM with pharmacy.
If medication reconciliation has not been performed, why?: Medication List N/A
Review of Systems
-
History Source: Patient
A 12 point ROS was completed and negative except as noted: Yes
Constitutional: Reports Fatigue; Denies Fever or Chills
Respiratory: Denies Cough or Trouble Breathing
Cardiac: Denies Chest Pain or Palpitations
Abdomen/GI: Denies Abdominal Pain, Nausea, Vomiting, Diarrhea, Bloody Stools or Anorexia
: Denies Dysuria or Flank Pain
Musculoskeletal: Denies Joint Pain or Edema
Neurological: Denies Dizzy or Headache
Psych: Denies Depression or Anxiety
Physical Exam
Vital Signs
Vital Signs
Temp Pulse Resp BP Pulse Ox
98.1 F 77 17 101/56 96
03/28/25 16:33 03/28/25 20:15 03/28/25 20:15 03/28/25 20:13 03/28/25 20:15
Physical Exam
General: Other (79y F in no acute distress.)
HEENT: Moist mucous membranes and PERRLA
Respiratory: Clear; No Wheezes, Rales or Rhonchi
Cardiac: S1/S2 and Regular Rhythm; No Murmur
GI: Soft, Non Tender, Non Distended and Normal Bowel Sounds
Musculoskeletal: No Clubbing, No Cyanosis and Other (LLE edema - asymmetric when compared to the R. Pos calf tenderness on the L.)
Neuro: AO x 3 and Other (Global weakness - but no focal neurologic deficits.)
Laboratory Results
-
03/28/25 16:51
03/28/25 16:51
Laboratory Results
Lactic Acid 1.4 mmol/L (0.7-2.0) 03/28/25 20:12
Total Bilirubin 0.3 mg/dl (0.2-1.3) 03/28/25 16:51
AST 19 U/L (14-36) 03/28/25 16:51
ALT 18 U/L (0-35) 03/28/25 16:51
Alkaline Phosphatase 87 U/L (38-126) 03/28/25 16:51
Impression/Plan
-
A/P: Patient is a 79y F with PMH significant for schizoaffective disorder, chronic ambulatory dysfunction and anemia who presents to ED complaining of generalized weakness and falls.
Acute on Chronic Ambulatory Dysfunction (Wheelchair-bound at baseline)
Fall at Home
Generalized Weakness
- Observe overnight for further evaluation and treatment.
- No evidence of acute injury / trauma.
- PT / OT evaluations in the AM.
- CM eval for discharge planning.
- Likely needs fdc solution given her baseline functional status / living alone.
LLE Edema / Calf Pain
- Check US now to rule out DVT given immobility, asymmetric edema and calf pain.
Schizoaffective Disorder
- Patient not able to confirm all current meds doses.
- She does report that risperidone dose has been increased from 2mg HS to 4mg HS over the past few months.
- Will decrease back to 2mg dose given new / increased weakness - possibly coincident with this dose increase?
- Confirm other meds in AM and resume usual psychotropic regimen.
Chronic Anemia
- Reportedly due to iron deficiency.
- Stable. Hgb is at / near known baseline.
- Follow for changes.
DVT Prophylaxis: Lovenox for now - change to therapeutic medication / dosing if US positive for DVT.
Code Status: Full
[2025-03-28] MEDS: RISPERDAL 2 MG PO (22:59)
[2025-03-29] VITALS (7 sets, daily range): BP systolic 94–137; BP diastolic 50–70; PULSE 48–57; O2SAT 94–97; BMI 28.2
[2025-03-29] MEDS: TYLENOL 650 MG PO (00:59)
--- NOTE | 2025-03-29 01:34 | PTCARENOTE ---
Pt received from ER,was a pullover as pt is wheel chair bound at home.Able to make her needs known.Pt on fall precautions and bed alarm in place.Pt call currie in reach.Plan of care continued on pt.
--- NOTE | 2025-03-29 08:07 | W.PN.HOSP.TC ---
Today's Communication/Plan
-
PT/OT
Placement
Appreciate psychiatry
Assessment / Plan
Assessment / Plan
Physical Exam
General: Other (79y F in no acute distress.)
HEENT: Moist mucous membranes
Respiratory: Clear to Auscultation Bilaterally
Cardiac: S1/S2 and Regular Rhythm
GI: Soft, Non Tender, Non Distended and Normal Bowel Sounds
Musculoskeletal: No Cyanosis and Other (LLE edema - asymmetric when compared to the R. Pos calf tenderness on the L.)
Neuro: AO x 3 and Other (Global weakness - but no focal neurologic deficits.)
Assessment/Plan
79y F with [facility] significant for schizoaffective disorder, prior CVA and chronic ambulatory dysfunction who presented to [facility] ED complaining of generalized weakness, failure to thrive and falls. Patient stated that she fell out of bed on 03/28/25
morning and later slid out of her wheelchair. Both occurred while trying to transfer. She does not ambulate at baseline. Patient denied any pain after the falls. She states that she was on the floor for about an hour after the second fall.
Patient reported that she has felt more weak recently and having issues getting around. She denied any focal complaints including headache, fevers / chills, cough / SOB, chest pain, abdominal pain, N/V/D, etc. Patient was admitted in August 2023
with a similar presentation. She was discharged to [facility] at that time. She had since returned to her apartment in [place] where she lives with her cat.
Acute on Chronic Ambulatory Dysfunction (Wheelchair-bound at baseline)
Fall at Home
Generalized Weakness
- Observe overnight for further evaluation and treatment.
- No evidence of acute injury / trauma.
- PT / OT evaluations in the AM.
- CM eval for discharge planning.
- Likely needs lobsterman solution given her baseline functional status / living alone.
History of CVA
LLE Edema / Calf Pain
- US to rule out DVT given immobility, asymmetric edema and calf pain: no DVT of the LLE
Schizoaffective Disorder
- Patient not able to confirm all current meds doses.
- She does report that risperidone dose has been increased from 2mg HS to 4mg HS over the past few months.
- Risperidone decreased back to 2mg dose given new / increased weakness - possibly coincident with this dose increase?
- Patient has significant amount of meds (Seroquel 12.5mg qhs, fluoxetine 20mg daily, protonix 20mg daily, memantine 5mg bid, Risperdal 2mg suppose to be 4mg hs, iron 325mg daily, and Buspar 5mg bid, all filled for 30 days supply back in December 30
2024) reportedly which she filled in December 2024 (but not since then) -- consulted psychiatry for assistance since most of these are psychotropic meds
Chronic Anemia
- Reportedly due to iron deficiency.
- Stable. Hgb is at / near known baseline.
- Follow for changes.
DVT Prophylaxis: Lovenox for now - change to therapeutic medication / dosing if US positive for DVT.
Code Status: Full Code
Anticipated Discharge: 24 - 48 hours
Subjective/Interval History
-
Date of Service: March 29, 2025
Patient was seen and examined. She denied any new symptoms or complaints.
Objective Data
-
Labs:
Laboratory Results
03/29/25
07:05
WBC Pending
Hgb Pending
Hct Pending
Plt Count Pending
Sodium Pending
Potassium Pending
Chloride Pending
Carbon Dioxide Pending
BUN Pending
Creatinine Pending
Glucose Pending
Calcium Pending
Vital Signs:
Vital Signs
Temp Pulse Resp BP Pulse Ox
97.8 F 68 15 102/50 93
03/29/25 03:20 03/29/25 03:20 03/29/25 03:20 03/29/25 03:20 03/29/25 03:20
I&O
03/28/25 03/29/25 03/30/25
06:59 06:59 06:59
Intake Total 0 / 0
Balance 0 / 0
[2025-03-29] MEDS: LOW STRENGTH ASPIRIN 81 MG PO (08:39)
[2025-03-29] MEDS: LAMICTAL 150 MG PO ×2 (08:39→20:20)
[2025-03-29] MEDS: FEOSOL 325 MG PO (08:39)
[2025-03-29 09:06] LABS: Hematocrit 30.8 % (37.0-47.0); Hemoglobin 9.9 g/dL (12.0-16.0); Mean Corp Hgb Conc. 32.1 g/dL (33.0-37.0); Mean Corpuscular Volume 91.4 fL (81.0-99.0); Platelet Count 260 10^3/uL (130-400); Red Cell Dist. Width 14.1 % (11.5-14.5)
--- NOTE | 2025-03-29 09:55 | CM ---
Addendum entered by Shannan Troncoso 03/29/25 10:15:
spoke with son dileep PCP: Mark Paulino [facility]-[phone]
Pharmacy: [place], [place]
stated had [facility] in past/[facility] in past in [facility]
Addendum entered by Shannan Troncoso 03/29/25 10:00:
VIGIL form explained. placed in chart
Original Note:
Patient seen at bedside
IA completed
CM consult completed for dispo planning
Left message with son Juan Miguel
Patient resides in an apartment in [place] on the 4th floor with elevator access
PLOF: reports uses a wheelchair
DME: Wheelchair, walker
denies VN/reports has been in rehab does not recall name?[facility]
PT/OT to eval
PLAN: await PT/OT evals, CM will follow for discharge planning/needs
[2025-03-29 10:02] LABS: Carbon Dioxide 26 mmol/L (22-30); Chloride 108 mmol/L (98-107); Glucose 79 mg/dl (70-99); Potassium 4.0 mmol/L (3.5-5.1); Sodium 138 mmol/L (135-145)
[2025-03-29 10:27] LABS: Blood Urea Nitrogen 13 mg/dl (7-17); Calcium 8.1 mg/dl (8.4-10.2); Estimated Creatinine Clearance 72 ml/min; eGFR > 60.00
--- NOTE | 2025-03-29 16:29 | CS.PSYCHR ---
Consult Summary - Psychiatry
-
pt seen for assistance with psychotropic medication
79 yo woman brought to [place] ED at her request due to ongoing difficulties where she is living. 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 Lives in own apartment, has meals delivered but EMS found meals outside her door, spoiled, Had told EMS that she called them
(twice in one day) to help her to eat. Asked to be brought to [facility], rather than her usual [facility], 'because you're so much nicer here; they never do anything for me there.'
Tells me that she had recently been sent from [facility] to [facility] rehab. Unclear when returned, but pt states just last week.
Tells me that she had just gotten off phone with son, 'he's angry that I am back in the hospital.' It appears that she had had some inhome services which she herself discontinued because she 'asked me about money'
Has history of CVA, osteoarthritis of hip which she has declined surgery for, CHF, chronic anemia
On exam pt is pleasant, talkative, oriented to place and person, and only off by two days on dates. 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
her way. Argues that she is able to take care of herself, though misses the in-home help that she had, who 'threw my credit cards at me'
Impression: Vascular dementia complicated schizoaffective disorder
Rec: resume lamictal 150 mg bid, risperdal 2 mg hs
[2025-03-29] MEDS: LOVENOX 40 MG SC (17:23)
[2025-03-29] MEDS: RISPERDAL 2 MG PO (22:29)
[2025-03-30] MEDS: TYLENOL 650 MG PO (00:49)
[2025-03-30 03:00] VITALS: BP 118/54
[2025-03-30 06:00] VITALS: BMI 28.0
[2025-03-30 07:15] VITALS: BP 109/54
[2025-03-30] MEDS: LOW STRENGTH ASPIRIN 81 MG PO (08:26)
[2025-03-30] MEDS: LAMICTAL 150 MG PO (08:26)
[2025-03-30] MEDS: FEOSOL 325 MG PO (08:26)
--- NOTE | 2025-03-30 09:57 | CM ---
Addendum entered by Hayley Smith 03/30/25 15:44:
per son patient's friend Karin, to pick patient up today.
Addendum entered by Hayley Smith 03/30/25 14:40:
[facility] have declined patient along with [facility], [facility], [facility], [facility].
Addendum entered by Hayley Smith 03/30/25 13:21:
afloat cryptologic manager reviewed patient's chart and spoke with patient and patient's son, Juan Miguel and patient and son are not agreeable to skilled placement, patient has been at skilled facilities in past and per son patient has been worse after she left
these facilities, patient and son want home with visiting nurses, referrals sent to [facility], [facility] and [facility] have accepted patient.
[facility]
[phone]

Original Note:
Chart reviewed and physical therapy are recommending skilled placement, patient with a Medical History of Schizoaffective Disorder, will need to review with patient to see if she has any recent inpatient psychiatric stays. Omid has been at
[facility] and [facility] in past.
Plan; Skilled placement.
[2025-03-30 11:26] VITALS: BP 101/64
--- NOTE | 2025-03-30 12:56 | W.PN.HOSP.TC ---
Today's Communication/Plan
-
Discharge today
Assessment / Plan
Assessment / Plan
Physical Exam
General: Other (79y F in no acute distress.)
HEENT: Moist mucous membranes
Respiratory: Clear to Auscultation Bilaterally
Cardiac: S1/S2 and Regular Rhythm
GI: Soft, Non Tender, Non Distended and Normal Bowel Sounds
Musculoskeletal: No Cyanosis
Neuro: AO x 3.
Psych: Good insight
Assessment/Plan
79y F with [facility] significant for schizoaffective disorder, prior CVA and chronic ambulatory dysfunction who presented to [facility] ED complaining of generalized weakness, failure to thrive and falls. Patient stated that she fell out of bed on 03/28/25
morning and later slid out of her wheelchair. Both occurred while trying to transfer. She does not ambulate at baseline. Patient denied any pain after the falls. She states that she was on the floor for about an hour after the second fall.
Patient reported that she has felt more weak recently and having issues getting around. She denied any focal complaints including headache, fevers / chills, cough / SOB, chest pain, abdominal pain, N/V/D, etc. Patient was admitted in August 2023
with a similar presentation. She was discharged to [facility] at that time. She had since returned to her apartment in [place] where she lives with her cat.
Acute on Chronic Ambulatory Dysfunction (Wheelchair-bound at baseline)
Fall at Home
Generalized Weakness
- No evidence of acute injury / trauma.
- PT / OT evaluations in the AM.
- CM eval for discharge planning: patient and her son Juan Miguel strongly declined for patient to go to any SNF facility, they would like patient to go home, case reviewer was unable to get VN services for patient, patient's son
Juan Miguel is agreeable for patient to be discharged today, understandings fall risks
History of CVA
LLE Edema / Calf Pain -- no DVT
- US to rule out DVT given immobility, asymmetric edema and calf pain: no DVT of the LLE
- Follow-up with PCP
Schizoaffective Disorder
- Patient not able to confirm all current meds doses.
- She does report that risperidone dose has been increased from 2mg HS to 4mg HS over the past few months.
- Risperidone decreased back to 2mg dose given new / increased weakness - possibly coincident with this dose increase?
- Patient has significant amount of meds Seroquel 12.5mg qhs, fluoxetine 20mg daily, protonix 20mg daily, memantine 5mg bid,iron 325mg daily, and Buspar 5mg bid -- consulted psychiatry for assistance since most of these are psychotropic meds
Risperidone - related Parkinsonism/Tremors?
Chronic Anemia
- Reportedly due to iron deficiency.
- Stable. Hgb is at / near known baseline.
- Follow for changes.
DVT Prophylaxis: Lovenox for now
Code Status: Full Code
More than 30 minutes spent in discharge including
Final examination of the patient
Summarizing hospital stay
Instructions for continuing care to all relevant caregivers
Preparation of discharge records, prescriptions, and referral forms
Total time spent (in minutes): 37
Anticipated Discharge: Today
Subjective/Interval History
-
Date of Service: March 30, 2025
Patient was seen and examined. She reported chronic tremors, denied any other new symptoms or complaints.
Objective Data
-
Vital Signs:
Vital Signs
Temp Pulse Resp BP Pulse Ox
97.7 F 88 18 101/64 95
03/30/25 11:26 03/30/25 11:26 03/30/25 11:26 03/30/25 11:26 03/30/25 11:26
I&O
03/29/25 03/30/25 03/31/25
06:59 06:59 06:59
Intake Total 0 / 0 1440 / 1440
Balance 0 / 0 1440 / 1440
--- NOTE | 2025-03-30 13:43 | W.PN.UPDATE ---
Update Note
Progress Note Update
pt seen for assessment of mental status. 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 Interestingly, was not a psychiatrist (as she had said yesterday) was using the
term metaphorically since he had to deal with her illness. Hoping to return to her apt, wants to try to get realtime reporter to help out. Wants to try to avoid SNF. Is in contact with son. Ok with current meds
[2025-03-30 15:15] VITALS: BP 104/84
--- NOTE | 2025-03-30 16:33 | W.DCSUMMARY ---
Discharge Summary
Discharge Data
Date of Admission: 03/28/25
Date of Discharge: 03/30/25
Total time spent discharging patient (in min): 37
-
Pending Results: Yes
Additional Pending Results:
Final Results of Blood Cultures from Hospitalization
Hospital Course
79 y/o female with past medical history of schizoaffective disorder, prior CVA and chronic ambulatory dysfunction, presented with generalized weakness, failure to thrive and falls. Patient is wheelchair-bound, lives alone and she reported that she
bathes herself and used to have an aide come to the house to help but currently does not have this. Left lower extremity ultrasound was checked given her left lower extremity pain, and it did not show any deep vein thrombosis. Psychiatry was
consulted given there was confusion about her psych med regimen. Case was discussed with patient's son who did not want patient to go to facility and he wanted patient discharged home, and his request was respected. recreation manager was unable to get
any home care agencies approved for patient.
Discharge Plan
-
Patient Disposition: Home with Home Care
Discharge Diagnosis/Procedures: Acute on Chronic Ambulatory Dysfunction (Wheelchair-bound at baseline)
Fall at Home
Generalized Weakness
History of CVA
Left Lower Extremity Edema/Calf Pain -- no DVT on ultrasound imaging
Schizoaffective Disorder
Risperidone-related Parkinsonism/Tremors?
Chronic Anemia
Condition: Fair
Diet: As tolerated
Activity: With assistance
Driving Restrictions: No driving
Other Services: VN
Activity Restrictions/Additional Instructions:
Patient needs very close follow-up with primary care provider within 7 days and psychiatrist.
Instructions: Preventing falls in adults, Managing higher risk of falls from your medicines, Preventing falls - ED (DC)
Referrals:
UNKNOWN - PT DOES,NOT KNOW [Family Provider]
Additional Discharge Medication Instructions: Ferrous Sulfate is patient's home medication.
Prescriptions:
New
ferrous sulfate [FeroSul] 325 mg (65 mg iron) Tablet
325 mg PO Q OTHER DAY Qty: 30 0RF
Continued
omeprazole 40 mg capsule,delayed release(DR/EC)
40 mg PO PRN PRN (Reason: GERD)
Patient Comments:
pt doesn't take it everyday
furosemide 20 mg tablet
20 mg PO DAILY
lamotrigine 150 mg tablet
150 mg PO BID Qty: 0 0RF
senna 8.6 mg capsule
8.6 mg PO PRN PRN (Reason: GI)
multivitamin Tablet
1 tab PO PRN PRN (Reason: VITAMIN)
Patient Comments:
pt doesn't take it everyday
aspirin 81 mg tablet,delayed release (DR/EC)
81 mg PO DAILY
risperidone 2 mg tablet
2 mg PO HS
Discharge Orders:
Discharge Patient (As Directed); Ordered 03/30/25
Ordered By: Ranjeet Cobian
Discharge Date and Time
Discharge Date/Time: 03/30/25 20:45
Print Language: SPANISH
[2025-03-30] MEDS: LOVENOX SC (18:15)
[2025-03-30] MEDS: LAMICTAL PO (19:35)
[2025-03-30 19:45] VITALS: BP 141/82
--- NOTE | 2025-03-31 01:49 | PTCARENOTE ---
Pt was picked up by friend/caregiver Delia to home .All belongings send.Pt & child care associate was given the education packet and all follow up instructions were went over .No other questions at this time.
== END 2025-03-30 20:45 | disposition home health service (06) ==
LOC: 4 EAST ACU 20:46
PROVIDERS: Physician Assistant Medical; Student in an Organized Health Care Education/Training Program; ADMITTING PHYSICIAN Hospitalist; ATTENDING PHYSICIAN Hospitalist; CONSULT PHYSICIAN Psychiatry & Neurology Psychiatry; EMERGENCY PHYSICIAN Emergency Medicine
DX: R53.1 Weakness (principal); R62.7 Adult failure to thrive; I87.8 Other specified disorders of veins; F25.9 Schizoaffective disorder, unspecified; M79.662 Pain in left lower leg; R60.0 Localized edema; R26.2 Difficulty in walking, not elsewhere classified; D64.9 Anemia, unspecified; R53.83 Other fatigue; I51.7 Cardiomegaly; W05.0XXA Fall from non-moving wheelchair, initial encounter; Y93.89 Activity, other specified; Y92.039 Unspecified place in apartment as the place of occurrence of the external cause; Z99.3 Dependence on wheelchair; Z60.2 Problems related to living alone; Z87.440 Personal history of urinary (tract) infections; Z86.73 Personal history of transient ischemic attack (TIA), and cerebral infarction without residual deficits; Z91.81 History of falling; Z79.899 Other long term (current) drug therapy; R29.6 Repeated falls
CPT/HCPCS: 70450; 80048; 80053; 81003; 82550; 82962; 83605; 83880; 84443; 85025; 85027; 87040; 93005; 93971; 96360; 97163; 97167; 99285; G0378

== ENCOUNTER 2025-05-28 15:16 | Observation (INO) | payer OTHER, MEDICARE, SELFPAY ==
[2025-05-28] VITALS (8 sets, daily range): BP systolic 99–152; BP diastolic 41–92; PULSE 85; O2SAT 95; BMI 29.3
--- NOTE | 2025-05-28 10:37 | ED.GENMED ---
History of Present Illness
<Lisha Engle PA-C - Last Filed: 05/28/25 16:00>
General
Chief Complaint: Weakness
Source: patient
Exam Limitations: none
Time Seen by Provider: 05/28/25 10:26
History of Present Illness
History of Present Illness:
79yoF with history of prior CVA and schizophrenia presenting via EMS for evaluation of generalized weakness. Patient was trying to stand up today when she slid and landed on her bilateral knees. She denies any head strike or loss of consciousness.
Patient crawled to the other room and activated EMS. EMS reports that patient calls 911 frequently for assistance. They helped her to her chair but she was feeling very weak today and requested to go to the hospital for evaluation. Patient
reports bilateral hip pain, low back pain, and neck pain although unclear if this is new or chronic. She was hospitalized in March of this year for generalized weakness. Per chart, son wanted patient to be discharged home and did not want her
to go to a facility. When asked how often she sees her son, patient reports 'never.' She currently lives alone and is in a wheelchair.
Past History
<Lisha Engle PA-C - Last Filed: 05/28/25 16:00>
Past History
ED Past Medical History: CVA, Psychiatric and Other (Venous stasis)
ED Past Surgical History: None
Social History
Tobacco: Non-smoker
Alcohol: None
Drug: None
Personal: Single
Living: alone
Employment: Not employed
Phy Exam
<Lisha Engle PA-C - Last Filed: 05/28/25 16:00>
General Physical Exam
General Presentation: well appearing and no apparent distress
General Skin: warm and dry
General Habitus: normal and elderly
General Mental: alert
ENT Exam
ENT Exam: normocephalic and other (No external signs of head trauma. No cervical spine tenderness.)
Pulmonary Exam
Pulmonary Exam: lungs clear, no respiratory distress, no rales, no crackles, no rhonchi and no wheezing
Neurological Exam
Neurological Exam: alert
Fer Coma Scale
Eye Opening: Spontaneous
Verbal Response: Oriented
Motor Response: Obeys Commands
GCS Total Score: 15
Musculoskeletal Exam
Musculoskeletal Exam: other (Erythema noted to anterior knees bilaterally. No deformities. )
Psychiatric Exam
Psychiatric Exam: normal mood/affect
Course
<Lisha Engle PA-C - Last Filed: 05/28/25 16:00>
Orders/Labs/Results
Orders:
Orders
05/28/25 10:35
Electrocardiogram (*1) Urgent
Reason for Study: Fatigue / Weakness
CT Cervical Spine W/o Iv Contr Urgent
Comment:
Reason For Exam: fall
EKG- Treatment ONCE
CR Knee - Left 4 Or More View* Urgent
Comment:
Reason For Exam: fall
CR Knee- Right 4 Or More View* Urgent
Comment:
Reason For Exam: fall
CR Lumbar Spine Comp Min 4 Vw* Urgent
Comment:
Reason For Exam: fall, low back pain
CR Pelvis - 1 Or 2 Views Urgent
Comment:
Reason For Exam: fall, bilateral hip pain
05/28/25 10:36
CT Head W/o Iv Contrast Urgent
Comment:
Reason For Exam: fall
05/28/25 10:45
Comprehensive Metabolic Panel Urgent
[place] Urgent
05/28/25 11:33
Complete Blood Count/With Diff Urgent
05/28/25 12:18
Case Management Consult ONCE
Case Management Consult: Discharge Planning
Pt Eval And Treat Urgent
Treatment: eval for rehab needs
Activity Level: Out of Bed- Ad Katherine
05/28/25 14:47
Admit/Transfer Patient As Directed
Co-Sign Provider:
Level of Care: Observation services
Assign to:: Medical/Surgical
Physician / Group: Johnna Bee
Diagnosis: generalized weakness, ambulatory dysfunction, fall
PRN Pain Medication Management As Directed
May give lesser potent ordered pain med per pt: Yes
preference::
Protocol:: Medication orders for pain may be administered in a
manner that supports deferring to patient preference
when the pt is:
- Requesting an ordered lesser potent pain medication.
Least to most potent pain medications are defined
as: acetaminophen < NSAID < tramadol < opioids
(morphine, oxycodone, hydromorphone).
- Requesting a lesser dose of the same medication IF
ORDERED.
- Requesting a less intrusive route of administration
if both routes are prescribed by the provider (PO <
IV).
05/28/25 14:48
Code Status As Directed
Resuscitation Status: Full Code
05/28/25 Dinner
Regular
05/28/25 15:08
Urine Culture Reflexed from UA [Urinalysis Reflex To Culture] Urgent
Date Specimen was Collected: 05/28/25
Time Specimen was Collected: 15:03
Urine Microscopic Reflex Cult Urgent
Urine Culture Urgent
BILL Source: U
Specimen Description:
Date Specimen was Collected: 05/28/25
Time Specimen was Collected: 15:03
Abnormal Lab Results
05/28/25 05/28/25 05/28/25
10:45 11:33 15:08
RBC 3.91 L 10^6/uL
(4.20-5.40)
Hgb 11.1 L g/dL
(12.0-16.0)
Hct 34.7 L %
(37.0-47.0)
MCHC 32.0 L g/dL
(33.0-37.0)
Lymphocytes % 18.1 L %
(20.5-51.1)
Monocytes % 9.7 H %
(1.7-9.3)
BUN 22 H mg/dl
(7-17)
Leukocyte Esterase Rfl 1+ A
(Negative)
[place] < 0.2 L mmol/L
(0.6-1.2)
05/28/25 11:33
05/28/25 10:45
Vital Signs
Initial and Last Documented VS:
Initial Vital Signs
Temp Pulse Resp BP Pulse Ox
97.7 F 56 16 152/86 95
05/28/25 10:26 05/28/25 10:26 05/28/25 10:26 05/28/25 10:26 05/28/25 10:26
Last Documented Vital Signs
Temp Pulse Resp BP Pulse Ox
97.7 F 89 11 141/87 97
05/28/25 10:26 05/28/25 14:00 05/28/25 13:00 05/28/25 14:00 05/28/25 13:00
<Jw Davila MD - Last Filed: 05/28/25 14:44>
Orders/Labs/Results
Orders:
Orders
05/28/25 10:35
Electrocardiogram (*1) Urgent
Reason for Study: Fatigue / Weakness
CT Cervical Spine W/o Iv Contr Urgent
Comment:
Reason For Exam: fall
EKG- Treatment ONCE
CR Knee - Left 4 Or More View* Urgent
Comment:
Reason For Exam: fall
CR Knee- Right 4 Or More View* Urgent
Comment:
Reason For Exam: fall
CR Lumbar Spine Comp Min 4 Vw* Urgent
Comment:
Reason For Exam: fall, low back pain
CR Pelvis - 1 Or 2 Views Urgent
Comment:
Reason For Exam: fall, bilateral hip pain
05/28/25 10:36
CT Head W/o Iv Contrast Urgent
Comment:
Reason For Exam: fall
05/28/25 10:45
Comprehensive Metabolic Panel Urgent
[place] Urgent
05/28/25 11:33
Complete Blood Count/With Diff Urgent
05/28/25 12:18
Case Management Consult ONCE
Case Management Consult: Discharge Planning
Pt Eval And Treat Urgent
Treatment: eval for rehab needs
Activity Level: Out of Bed- Ad Katherine
05/28/25 14:47
Admit/Transfer Patient As Directed
Co-Sign Provider:
Level of Care: Observation services
Assign to:: Medical/Surgical
Physician / Group: Johnna Bee
Diagnosis: generalized weakness, ambulatory dysfunction, fall
PRN Pain Medication Management As Directed
May give lesser potent ordered pain med per pt: Yes
preference::
Protocol:: Medication orders for pain may be administered in a
manner that supports deferring to patient preference
when the pt is:
- Requesting an ordered lesser potent pain medication.
Least to most potent pain medications are defined
as: acetaminophen < NSAID < tramadol < opioids
(morphine, oxycodone, hydromorphone).
- Requesting a lesser dose of the same medication IF
ORDERED.
- Requesting a less intrusive route of administration
if both routes are prescribed by the provider (PO <
IV).
05/28/25 14:48
Code Status As Directed
Resuscitation Status: Full Code
05/28/25 Dinner
Regular
05/28/25 15:08
Urine Culture Reflexed from UA [Urinalysis Reflex To Culture] Urgent
Date Specimen was Collected: 05/28/25
Time Specimen was Collected: 15:03
Urine Microscopic Reflex Cult Urgent
Urine Culture Urgent
BILL Source: U
Specimen Description:
Date Specimen was Collected: 05/28/25
Time Specimen was Collected: 15:03
Abnormal Lab Results
05/28/25 05/28/25 05/28/25
10:45 11:33 15:08
RBC 3.91 L 10^6/uL
(4.20-5.40)
Hgb 11.1 L g/dL
(12.0-16.0)
Hct 34.7 L %
(37.0-47.0)
MCHC 32.0 L g/dL
(33.0-37.0)
Lymphocytes % 18.1 L %
(20.5-51.1)
Monocytes % 9.7 H %
(1.7-9.3)
BUN 22 H mg/dl
(7-17)
Leukocyte Esterase Rfl 1+ A
(Negative)
[place] < 0.2 L mmol/L
(0.6-1.2)
05/28/25 11:33
05/28/25 10:45
Vital Signs
Initial and Last Documented VS:
Initial Vital Signs
Temp Pulse Resp BP Pulse Ox
97.7 F 56 16 152/86 95
05/28/25 10:26 05/28/25 10:26 05/28/25 10:26 05/28/25 10:26 05/28/25 10:26
Last Documented Vital Signs
Temp Pulse Resp BP Pulse Ox
97.7 F 89 11 141/87 97
05/28/25 10:26 05/28/25 14:00 05/28/25 13:00 05/28/25 14:00 05/28/25 13:00
<Lisha Engle PA-C - Last Filed: 05/28/25 16:00>
MDM/Problems Addressed
Differential Diagnosis Includes:
79yoF here after a fall. C/o generalized weakness. Lives alone. C/o neck and low back pain but unclear if this is new or chronic. VSS. Patient is awake and alert. No external signs of head trauma on exam. Differential diagnosis includes but is not
limited to: fracture, sprain, ambulatory dysfunction, failure to thrive
Initial ED plan: Check CBC, CMP, lithium level, CT head/cervical spine, pelvic/lumbar/bilateral knee x-rays.
<Lisha Engle PA-C - Last Filed: 05/28/25 16:00>
*Pulse Oximetry
SaO2: 94
Oxygen Mode of Delivery: Room air
Patient hypoxic: no
*EKG
Interpreted by ED Provider?: Yes
EKG Intrepretation Date: 05/28/25
Heart Rate: 83
Rate: normal
Rhythm: sinus and PVC's
Terrell: normal axis
Interval: first degree heart block
QRS Pattern: normal QRS
Ischemia: no ischemia
*Critical Care Note
Total Time (30-74mins, 75-104mins- exclusive of procedures): Not Applicable
<Lisha Engle PA-C - Last Filed: 05/28/25 16:00>
Update Note
Update Note:
Labs overall unremarkable. No traumatic injuries seen on imaging. PT consult placed who recommends nursing home facility. Case management called son who wanted her discharged back to home. Patient is not a safe discharge at this time so will
admit.
ED Attending Note
<Lisha Engle PA-C - Last Filed: 05/28/25 16:00>
-
Portions of this chart may have been created with voice recognition software.� Occasional wrong word or��sound alike� substitutions may have occurred due to the inherent limitations of voice recognition software.
<Jw Davila MD - Last Filed: 05/28/25 14:44>
ED Attending Note
Patient seen and examined by attending physician: Yes
I performed the substantive portion of visit, reviewed & personally made and approve the management plan that is documented in note by myself or KHALIDA.: Yes
ED Attending Note:
Patient lives alone. Apparently had a lift assist today and needs frequent lift assist. Significant ADL issues. Complaining of pain in both knees.
On exam patient is chronically ill-appearing no distress. Currently eating. Normocephalic atraumatic. Neck is nontender. No chest wall tenderness. Heart regular rate and rhythm. Abdomen benign. Some mild tenderness over both patellas although
able to straight leg raise and stable. Hips was negative.
X-rays are stable.. Patient admission mostly for ADL issues and social service involvement for possible placement.
Discharge Plan
Departure
Patient Disposition: Admit
Date of Disposition: 05/28/25
Time of Disposition: 14:11
Presentation/result/management discussed w/ accepting MD/DO: Hospitalist
Discharge Problem:
Generalized weakness, Ambulatory dysfunction
Interventions
Interventions:
*Risk Screen - Suicide Last Done: 05/28/25 14:18
*General Assessment Last Done: 05/28/25 14:18
*Neglect/Abuse Screening Last Done: 05/28/25 14:18
*ED- Fall Risk Assessment Last Done: 05/28/25 14:18
ED- Cardiac Assessment Last Done: 05/28/25 10:35
ED- Neurological Assessment Last Done: 05/28/25 10:35
ED- Pulmonary Assessment Last Done: 05/28/25 10:35
[2025-05-28 11:21] LABS: ALT (SGPT) 24 U/L (0-35); AST (SGOT) 29 U/L (14-36); Albumin 4.1 g/dl (3.5-5.0); Alkaline Phosphatase 99 U/L (38-126); Blood Urea Nitrogen 22 mg/dl (7-17); Calcium 9.2 mg/dl (8.4-10.2); Carbon Dioxide 26 mmol/L (22-30); Chloride 103 mmol/L (98-107); Estimated Creatinine Clearance 63 ml/min; Glucose 90 mg/dl (70-99); Lithium < 0.2 mmol/L (0.6-1.2); Potassium 4.9 mmol/L (3.5-5.1); Sodium 136 mmol/L (135-145); Total Protein 7.2 g/dl (6.3-8.2); eGFR > 60.00
[2025-05-28 11:41] LABS: Hematocrit 34.7 % (37.0-47.0); Hemoglobin 11.1 g/dL (12.0-16.0); Mean Corp Hgb Conc. 32.0 g/dL (33.0-37.0); Mean Corpuscular Volume 88.7 fL (81.0-99.0); Nucleated Red Blood Cells % 0 %; Platelet Count 253 10^3/uL (130-400); Red Cell Dist. Width 14.4 % (11.5-14.5)
--- NOTE | 2025-05-28 12:55 | CM ---
chart reviewed and consult received
pt working with PT currently
Will follow up after PT consult
--- NOTE | 2025-05-28 13:39 | CM ---
Chart reviewed and consult completed
Spoke with nurse and RONAK Husain
Attempted to talk with patient at ED bedside but she is drowsy, sleeping
LVM with son Juan Miguel [phone]
Spoke with her neighbor/friend Chandrika at [phone]
Per her friend, patient lives alone in [address] 4th floor with elevator access
She has a cleaning lady coming once a week and grocery shopping
Concerned about her living alone per friend Chandrika
Chandrika states that her son and patient do NOT get along
RONAK Husain made aware of above
CM will continue to follow up
--- NOTE | 2025-05-28 14:13 | HPS.HSE ---
Family Physician
-
Family Physician:
Chief Complaint
-
fall
History of Present Illness
Patient is a 79-year-old female with past medical history significant for schizoaffective disorder, chronic ambulatory dysfunction, prior CVA, history of TBI, chronic anemia and GERD who presented to [facility] ED for evaluation for following a fall at
home. Patient reports falling onto her knees when attempting to get out of bed this morning. She explains that she lives at home alone and utilizes a wheelchair for majority of ambulation. She has a private aide that comes 1x a week to assist with
meals. All other ADLs are completed by herself. She stated today she had EMS assist her to her chair and she felt weaker than normal so requested ED evaluation. She also mentions she feels she needs to set up assistance at home and that her son does
not believe she needs help because he is not actively involved and is unaware of her needs. Patient denies any pain or symptoms at this time. She is requesting more to eat as snack pack was not enough and she is 'starving.'
Medical History
Past Medical History
Past Medical History: Reports Other
Additional Past Medical History:
schizoaffective disorder
chronic ambulatory dysfunction
prior CVA
history of TBI
chronic anemia
GERD
Past Surgical History: Reports Other
Additional Past Surgical History:
None known
Social History
Tobacco: Non-smoker
Alcohol: None
Drug: None
Living: Alone
Family History
Family History: Not pertinent
Allergies / Home Medications
Allergies reflects when Allergies were last updated in [facility].
Home Medications with original date entered in [facility]
Allergy/Medication List:
Allergies
Allergy/AdvReac Type Severity Reaction Status Date / Time
No Known Allergies Allergy Verified 05/28/25 10:31
Home Medications
lamotrigine 150 mg tablet 150 mg PO BID Mental Health/Anxiety #0 tabs 08/21/23
fluoxetine 20 mg capsule 20 mg PO DAILY Mental Health/Anxiety 05/28/25
furosemide 20 mg tablet (Lasix) 20 mg PO DAILY Fluid Retention/Swelling 05/28/25
memantine 5 mg tablet 5 mg PO BID Mental Health/Anxiety 05/28/25
quetiapine 25 mg tablet (Seroquel) 25 mg PO HS Mental Health/Anxiety 05/28/25
risperidone 4 mg tablet (Risperdal) 4 mg PO QPM Mental Health/Anxiety 05/28/25
sennosides 8.6 mg tablet (senna) 4.3 mg PO DAILY Constipation 05/28/25
therapeutic multivitamin 1 tab PO DAILY Supplement 05/28/25
Review of Systems
-
History Source: Patient
Constitutional: Denies Fever or Chills
EENT: Denies Sore Throat
Respiratory: Denies Cough, Hemoptysis or Trouble Breathing
Cardiac: Denies Chest Pain, Diaphoresis, Palpitations or Syncope
Abdomen/GI: Denies Abdominal Pain, Nausea, Vomiting or Diarrhea
: Denies Dysuria, Frequency or Urgency
Musculoskeletal: Reports Other (bilateral knee discomfort post fall )
Skin: Denies Rash
Neurological: Reports Weakness; Denies Dizzy or Headache
Endocrine: Denies Polyuria
Physical Exam
Vital Signs
Vital Signs
Temp Pulse Resp BP Pulse Ox
97.7 F 70 11 130/64 97
05/28/25 10:26 05/28/25 13:00 05/28/25 13:00 05/28/25 13:00 05/28/25 13:00
Physical Exam
General: Well Developed, Well Nourished, No Apparent Distress, Comfortable, Conversant and Obese
HEENT: NormoCephalic, Moist mucous membranes, PERRLA, Ears Appear Normal and Hearing Impaired
Respiratory: Clear and Non Labored Respirations; No Wheezes, Rales or Rhonchi
Cardiac: S1/S2 and Regular Rhythm; No Murmur, Rub, Gallop or Peripheral Edema
GI: Soft, Non Tender, Non Distended and Normal Bowel Sounds
Musculoskeletal: No Clubbing, No Cyanosis and No Edema
Skin: Warm and IV/Catheter Site
Neuro: Awake and AO x 3
Psych: Calm
Laboratory Results
-
05/28/25 11:33
05/28/25 10:45
Laboratory Results
Total Bilirubin 0.6 mg/dl (0.2-1.3) 05/28/25 10:45
AST 29 U/L (14-36) 05/28/25 10:45
ALT 24 U/L (0-35) 05/28/25 10:45
Alkaline Phosphatase 99 U/L (38-126) 05/28/25 10:45
Data Reviewed
-
Diagnostic Radiology: Report Reviewed by me
CT Scan: Report Reviewed by me
Lab Data: Labs Reviewed by me (hgb 11.1, hct 34.7)
Impression/Plan
-
IMPRESSION/PLAN:
#generalized weakness, chronic ambulatory dysfunction 2/2 AFTT vs. infectious process
EKG: SINUS RHYTHM WITH 1ST DEGREE A-V BLOCK WITH FREQUENT PREMATURE VENTRICULAR COMPLEXES
Pelvis/Lumbar spine x-ray: Moderate to severe multilevel degenerative changes of the lumbar spine without evidence for acute fracture.
No overt acute pelvic fracture.
End stage right hip osteoarthritis.
B/L knee: No acute fracture or dislocation of either knee. Moderate bilateral tricompartmental osteoarthritis. No significant joint effusion of either knee. Soft tissues are grossly unremarkable bilaterally
Head/C-Spine CT: 1. No acute intracranial abnormality noted.
2. No acute fracture or subluxation of the cervical spine. Multilevel degenerative changes of the cervical spine.
- Admit to med/surg
- consult case management
- consult PT
- check UA
#schizoaffective disorder
- continue fluoxetine, lamotrigine, memantine, quetiapine and risperidone
#chronic anemia
hgb 11.1, hct 34.7
appears at or above baseline
- monitor CBC
#prior CVA
#history of TBI
#GERD
Code status: full code
DVT prophylaxis: Lovenox sq
--- NOTE | 2025-05-28 14:22 | CM ---
Chart reviewed and spoke with patient at ED bedside with Rina SIMONS
Spoke with son on the phone who wants to respect his mother at her home
Patient expressed her wishes to stay at home with more help at home
Patient asked for me to call her [facility]
Spoke with her aide Татьяна [phone] who comes 40 hours a month.
Татьяна states that [facility] has a social service worker [facility]
She will get [employer], Meals on Wheels and 40 more hours of [employer] [facility]
Per ED team plan is for her to be admitted at this time
CM will continue to follow up
--- NOTE | 2025-05-28 14:56 | W.PN.UPDATE ---
Update Note
Progress Note Update
I saw and examined the patient.
Discussed case with FURNACE AND WASH EQUIPMENT OPERATOR.
Comment:
HPI: 79-year-old female with past medical history significant for schizoaffective disorder, chronic ambulatory dysfunction (wheelchair bound at baseline), prior CVA, history of TBI, chronic anemia and GERD who presented to the ED due to weakness and
fell while trying to get out of bed to use the bathroom.
She lives at home alone. Her main complaint is weakness, though she is not a reliable historian with underlying schizoaffective disorder.
She also c/o R leg pain which appears to be chronic. Denies to LOC or head injury.
A/P:
# Generalized weakness
# chronic ambulatory dysfunction, wheelchair bound at baseline
? UTI
Check UA reflex culture
Imaging without fracture
PT OT eval, CM CS
# Schizoaffective disorder
Stable
continue fluoxetine, lamotrigine, memantine, quetiapine and risperidone
# prior CVA
# history of TBI
# GERD
Code status: full code
DVT prophylaxis: Lovenox sq
[2025-05-28 15:43] LABS: Urine Character Clear (Clear)
[2025-05-28 16:44] LABS: Urine Red Blood Cell 0-2 /HPF (0-2); Urine White Cell 16-20 /HPF (0-5)
[2025-05-28] MEDS: LOVENOX 40 MG SC (18:22)
[2025-05-28] MEDS: RISPERDAL 4 MG PO (18:43)
[2025-05-28] MEDS: NAMENDA 5 MG PO (20:12)
[2025-05-28] MEDS: LAMICTAL 150 MG PO (20:14)
[2025-05-28] MEDS: SEROQUEL 25 MG PO (21:12)
--- NOTE | 2025-05-28 23:27 | PTCARENOTE ---
Oral care was not performed on patient because she stated that it was her preference to brush teeth in the morning.
[2025-05-29 05:32] VITALS: BMI 29.3
[2025-05-29 05:53] VITALS: BP 132/65
[2025-05-29 06:00] LABS: Glucose - Point of Care 98 mg/dl (70-99)
--- NOTE | 2025-05-29 06:57 | RR ---
A Rapid Response was called on this patient, please see Rapid Response form.
--- NOTE | 2025-05-29 07:21 | RR ---
A Rapid Response was called on this patient, please see Rapid Response form.
Pt forgetful at baseline, was noted to have an acute change of mental status. She became increasingly confused and was slurring her words. A new left sided facial droop was noted. Vitals obtained were temp- 98.1 pulse-48, RR-16, BP-132/65, O2- 93%.
NIH score-8. Rapid response and stroke alert called. Currently awaiting CT scan results.
[2025-05-29] MEDS: ASPIRIN 325 MG PO (07:29)
[2025-05-29] MEDS: LAMICTAL 150 MG PO ×2 (07:29→19:50)
[2025-05-29] MEDS: NAMENDA 5 MG PO ×2 (07:30→19:50)
[2025-05-29] MEDS: SENOKOT 4.3 MG PO (07:31)
[2025-05-29] MEDS: PROZAC 20 MG PO (07:32)
[2025-05-29] MEDS: THERAGRAN 1 TABLET PO (07:32)
[2025-05-29] MEDS: LASIX 20 MG PO (07:34)
--- NOTE | 2025-05-29 07:38 | W.PN.UPDATE ---
Update Note
Progress Note Update
Late entry :RR called at @0558 Stroke alert called for new L facial droop and dysarthria- NIH on the floor was a 13 (dysarthria, L facial droop, Drift in all 4 limbs- known weakness/WC bound at baseline.) Last known normal was 0300. Stroke CT
obtained- [place] [facility] [place] consulted-neurologist social service liaison ultimately decided against TNK after follow up NIH totaled 8 (dysarthria, L facial droop, Drift in all 4 limbs- with moderate improvements). No noted bleeds on the CT. Encouraged to load
with ASA 325mg and start ASA 81mg daily. NPO with swallow screen and neuro consult placed. MRI ordered. �
--- NOTE | 2025-05-29 07:40 | CON.NEURO ---
Neuro Assessment/Plan
Assessment
Ange Ruby is a 79yoF with history of prior RMCA CVA and schizoaffective disorder initially presenting with generalized weakness and fall, found to have transient left facial droop and dysarthria. On subsequent neurology evaluation left facial
droop appears to have resolved, although she continues to have moderate to severe dysarthria which she self-reports is similar to her baseline (notably wears dentures). Overnight exam initially with relatively symmetric diffuse pain limited
weakness; on this morning's evaluation able to burst to full strength in all extremities, apart from mild pain limited weakness in right leg knee extension. NCHCT, CT angiogram, and CT perfusion overall relatively unremarkable.
Overall, unclear if transient facial droop represents a new focal deficit, new acute infarct, or fluctuating from baseline (e.g. recrudescence of prior RMCA stroke), however suspect slightly lower suspicion for new stroke. MRI brain would be helpful
to completely rule out new stroke.
Regardless of above, she should be on aspirin and statin for secondary stroke prevention given prior chronic stroke. No known history of AFIB and normal LVEF on recent TTE, and lower suspicion for hypercoagulable state, therefore defer
anticoagulation.
Plan
- continue ASA 81 mg daily, including at time of discharge (for prior RMCA stroke)
- START atorvastatin 40 mg daily (for prior RMCA stroke)
- obtain MRI brain without contrast
- obtain LDL, Hgb A1c
- BP goal normotension
- PT/OT/pain management per primary team
Consultation
Order
Date of Consultation: 05/29/25
Requesting Provider: Darryl Sandoval
Reason for Consult: Left facial droop
Subjective/Objective
Subjective Data
Date of Service: May 29, 2025
Ange Ruby is a 79yoF with history of prior RMCA CVA and schizoaffective disorder initially presenting with generalized weakness and fall, found to have left facial droop and dysarthria.
She initially presented with diffuse weakness after after a fall without head strike or loss of consciousness. She denies any new unilateral focal weakness or numbness, although reports generalized weakness and diffuse pain (bilateral hip, lower
back, R>L legs). She has baseline weakness and is wheelchair bound at baseline. XRays demonstrated no acute fracture, however osteoarthris and degenerative changes.
Her last known normal was reportedly 0300. At 0558, she was noted to have left facial droop and dysarthria. Intial NIHSS on the floor was reportedly 13 (dysarthria, left facial droop, diffuse pain-limited weakness). [place] telestroke was consulted
with NIHSS of 8 (dysarthria, left facial droop, moderately improved drift in all 4 limbs).
TNK was deferred as facial droop/dysarthria was gradually improving and non-disabiling, and diffuse weakness was likely chronic. She was reocmmended to load with ASA 325 mg and start 81 mg daily, obtain MRI.
On my evaluation, patient reports wearing dentures at baseline and states that the quality of her speech is roughly at her baseline. She denies any prior history of left facial droop and did not personally notice any facial asymmetry and speech
changes. She confirms diffuse pain limited weakness, as above, although notes pain is most severe in her right knee.
Objective Data
Vital Signs
Temp Pulse Resp BP Pulse Ox
36.7 C 82 16 129/69 93
05/29/25 05:53 05/29/25 07:34 05/29/25 05:53 05/29/25 07:34 05/29/25 05:53
Lab Results
05/28/25 11:33
05/28/25 10:45
Sodium 136 mmol/L (135-145) 05/28/25 10:45
Potassium 4.9 mmol/L (3.5-5.1) 05/28/25 10:45
BUN 22 mg/dl (7-17) H 05/28/25 10:45
Glucose 90 mg/dl (70-99) 05/28/25 10:45
Calcium 9.2 mg/dl (8.4-10.2) 05/28/25 10:45
Patient Allergies
No Known Allergies Allergy (Verified 05/28/25 10:31)
CVA Assessment
Onset of Stroke Symptoms
Onset of symptoms known: Yes
Date of onset of symptoms: 05/29/25
Time of onset of symptoms: 05:58
Time pt last seen normal is known: Yes
Date last time pt seen normal: 05/29/25
Time last time pt seen normal: 03:00
NIH Stroke Score
Level of Consciousness: 0 - Alert
LOC Questions: 0-Answers both correctly
LOC Commands: 0-Performs both correctly
Best Horizontal Gaze: 0-Normal
Visual Claudio: 0=Normal, no visual loss
Facial Palsy: 0=Normal, symmetrical
Motor - Right Arm: 0=No drift 10 seconds
Motor - Left Arm: 0=No drift 10 seconds
Motor - Right Le-Drift < 5 seconds
Motor - Left Le-No drift 5 seconds
Limb Ataxia: 0-Absent
Sensation: 0-Normal
Best Language: 0-No aphasia
Dysarthria: 2-Severe slurring
Extinction and Inattention: 0-No abnormality
NIH Total Score:: 3
Tenecteplase Contraindications
Inclusion and Exclusion criteria reviewed: Yes (TNK not administered due to minor/resolving/non-disabiling deficit and no new acute weakness. )
IAT Contraindications: Imaging doesn't show large vessel occlusion as cause of stroke
Past History
Past Medical / Surgical History
Past Medical History: GERD, Stroke (R MCA stroke ) and Other (Schizoaffective disorder )
Review of Systems
-
Constitutional: Weakness and Other (Diffuse orthopedic pain, most pronounced in right knee and lower back )
Physical Exam
-
General: Comfortable
Eyes: PERRLA
HEENT: Normocephalic and Atraumatic
Neck: Unable to Assess
Respiratory: No Dyspnea
Cardiac: Regular Rhythm
GI: Unable to Assess
Skin: Unremarkable
Extremities: No Clubbing
Psych: Unremarkable
Extended Neurological Exam
Attention Span & Concentration: Awake, Alert, Interactive and Other (Oriented to person, time, paritally to place (knows hospital, but not location) )
Memory: Unable to Assess
Tremor: Other (Right > left pillrolling resting tremor )
Speech: Dysarthric (Severe dysarthria (wears dentures) )
Cranial Nerve II: Left Eye: Visual Claudio Grossly Intact
Cranial Nerve II: Right Eye: Visual Claudio Grossly Intact
Cranial Nerves III, IV, : Extraocular Movement: Extraocular Movement Full in all Directions
Cranial Nerve V: Facial Sensation: Intact to Light Touch
Cranial Nerve VII: Facial Symmetry: Normal Facial Symmetry
Cranial Nerve VIII: Hearing: Reduced on Left
Cranial Nerves IX, X: Palate Movement: Palate Elevation Symmetric
Cranial Nerve XI: Shoulder Shrug: Unremarkable
Cranial Nerve XII: Tongue Protusion: Midline
Muscle Strength, Overall: Full Throughout (Apart from pain limited weakness in right lower extremity (4-/5 knee extension) )
Muscle Bulk & Tone: Bulk Unremarkable and Tone Unremarkable
Pronator Drift: Drift in Right Lower Extremity
Touch Sensation: Unremarkable
Coordination: [id number] Testing Unremarkable
Gait & Station: Unable to Assess
Data Reviewed
-
CT-A: Image Reviewed (Reviewed CTAH&N, agree with report, no large vessel occlusion. )
CT-Perfusion: Image Reviewed (Reviewed CTP, agree with report, no perfusional deficit. )
CT Head: Image Reviewed (Personally reviewed NCHCT, demonstrating chronic R MCA infarct with surrounding encephalomalacia, likely chronic cerebellar strokes, however no clear area of acute infarct or hemorrhage. )
Echocardiogram: Report Reviewed (TTE (08/31) Normal left ventricular size, wall thickness and systolic function. No regional wall motion abnormalities are seen. LV ejection fraction is 60-65% by Weldon's method of discs. Normal diastolic
function. )
Medications
-
Active Medications
Generic Name Dose Route Start Last Admin
Trade Name Freq PRN Reason Stop Dose Admin
Acetaminophen 650 mg 05/28/25 22:55
Acetaminophen 325 Mg Tablet PO 06/25/25 22:54
Q4HPRN PRN
mild pain/BURGESS/temp>100.5
Aspirin 81 mg 05/30/25 08:00
Aspirin 81 Mg Chewable Tablet PO 06/27/25 07:59
DAILY JORGE
Enoxaparin Sodium 40 mg 05/28/25 18:01 05/28/25 18:22
Enoxaparin Sodium 40 Mg/0.4 Ml Syringe SC 06/25/25 18:00 40 mg
QPM JORGE Administration
Fluoxetine HCl 20 mg 05/29/25 08:00 05/29/25 07:32
Fluoxetine 20 Mg Capsule PO 06/26/25 07:59 20 mg
DAILY JORGE Administration
Furosemide 20 mg 05/29/25 08:00 05/29/25 07:34
Furosemide 20 Mg Tablet PO 06/26/25 07:59 20 mg
DAILY JORGE Administration
Lamotrigine 150 mg 05/28/25 20:00 05/29/25 07:29
Lamotrigine 100 Mg Tablet PO 06/25/25 19:59 150 mg
BID JORGE Administration
Memantine 5 mg 05/28/25 20:00 05/29/25 07:30
Memantine 10 Mg Tablet PO 06/25/25 19:59 5 mg
BID JORGE Administration
Multivitamins Therapeutic 1 tablet 05/29/25 08:00 05/29/25 07:32
Multivitamin Tablet PO 06/26/25 07:59 1 tablet
DAILY JORGE Administration
Quetiapine Fumarate 25 mg 05/28/25 22:00 05/28/25 21:12
Quetiapine 25 Mg Tablet PO 06/25/25 21:59 25 mg
HS JORGE Administration
Risperidone 4 mg 05/28/25 19:00 05/28/25 18:43
Risperidone 2 Mg Tablet PO 06/25/25 18:59 4 mg
QPM JORGE Administration
Sennosides 4.3 mg 05/29/25 08:00 05/29/25 07:31
Sennosides (Senokot) 8.6 Mg Tablet PO 06/26/25 07:59 4.3 mg
DAILY JORGE Administration
Sodium Chloride 0 flush 05/28/25 19:00
Sodium Chloride 0.9% (Flush) Syringe IV 06/25/25 18:59
PER PROTOCOL JORGE
Home Medications
�Medication �Instructions �Recorded
lamotrigine 150 mg tablet 150 mg PO BID Mental 08/21/23
Health/Anxiety #0 tabs
fluoxetine 20 mg capsule 20 mg PO DAILY Mental 05/28/25
Health/Anxiety
furosemide 20 mg tablet (Lasix) 20 mg PO DAILY Fluid 05/28/25
Retention/Swelling
memantine 5 mg tablet 5 mg PO BID Mental Health/Anxiety 05/28/25
quetiapine 25 mg tablet (Seroquel) 25 mg PO HS Mental Health/Anxiety 05/28/25
risperidone 4 mg tablet (Risperdal) 4 mg PO QPM Mental Health/Anxiety 05/28/25
sennosides 8.6 mg tablet (senna) 4.3 mg PO DAILY Constipation 05/28/25
therapeutic multivitamin 1 tab PO DAILY Supplement 05/28/25
[2025-05-29 08:00] VITALS: BP 130/74
[2025-05-29 08:44] LABS: Hematocrit 32.6 % (37.0-47.0); Hemoglobin 10.5 g/dL (12.0-16.0); Mean Corp Hgb Conc. 32.2 g/dL (33.0-37.0); Mean Corpuscular Volume 90.3 fL (81.0-99.0); Nucleated Red Blood Cells % 0 %; Platelet Count 261 10^3/uL (130-400); Red Cell Dist. Width 14.6 % (11.5-14.5)
[2025-05-29 09:29] LABS: Blood Urea Nitrogen 14 mg/dl (7-17); Calcium 8.5 mg/dl (8.4-10.2); Carbon Dioxide 28 mmol/L (22-30); Chloride 105 mmol/L (98-107); Estimated Creatinine Clearance 74 ml/min; Glucose 89 mg/dl (70-99); Potassium 4.4 mmol/L (3.5-5.1); Sodium 138 mmol/L (135-145); eGFR > 60.00
[2025-05-29] MEDS: LIPITOR 40 MG PO (10:36)
--- NOTE | 2025-05-29 11:26 | W.PN.HOSP.TC ---
Today's Communication/Plan
-
monitor vitals
see plan
MRI brain
cw ASA
monitor mental status
urine cx pending
lipid profile,A1c
Assessment / Plan
Assessment / Plan
General: Well Developed, Well Nourished, No Apparent Distress
HEENT: NormoCephalic, Moist mucous membranes
Respiratory: Clear and Non Labored Respirations
Cardiac: S1/S2 and Regular Rhythm; No Murmur
GI: Soft, Non Tender, Non Distended and Normal Bowel Sounds
Musculoskeletal: No Edema
Neuro: Awake and AO x 3
Psych: Calm
Generalized weakness
chronic ambulatory dysfunction, wheelchair bound at baseline
UA noted, could be contaminant. Will await for urine culture.
Imaging without fracture
PT OT eval
Stroke alert called 05/[address] head negative
Check MRI
Loaded with aspirin, now on aspirin daily
Speech evaluation
Neurology following
Lipid profile, A1c
Monitor NIH
# Schizoaffective disorder
Stable
continue fluoxetine, lamotrigine, memantine, quetiapine and risperidone
# prior CVA
# history of TBI
# GERD
Code status: full code
DVT prophylaxis: Lovenox sq
Anticipated Discharge: 24 - 48 hours
Subjective/Interval History
-
Date of Service: May 29, 2025
Denies pain
Objective Data
-
Labs:
Laboratory Results
05/29/25
08:23
WBC 5.9
Hgb 10.5 L
Hct 32.6 L
Plt Count 261
Sodium 138
Potassium 4.4
Chloride 105
Carbon Dioxide 28
BUN 14
Creatinine 0.6
Glucose 89
Calcium 8.5
Vital Signs:
Vital Signs
Temp Pulse Resp BP Pulse Ox
97.4 F 83 18 130/74 96
05/29/25 08:00 05/29/25 08:00 05/29/25 08:00 05/29/25 08:00 05/29/25 08:00
[2025-05-29 11:59] VITALS: BP 103/50; PULSE 64; O2SAT 94
--- NOTE | 2025-05-29 12:47 | PTOTSP ---
Speech Therapy Evaluation:
Pt with chronic (schizoaffective disorder, R MCA CVA, TBI, GERD) and acute (concern for acute CVA) risk factors of dysphagia. At bedside, mild oral impairments noted. No overt s/sx of aspiration across trials, WBC WNL, pt on room air, and without
dysphagia hx.
Recommend:
1. Diet downgrade to IDDSI 6 (soft and bite sized solids), continue thin liquids
2. Meds as tolerated
3. Strict aspiration precautions
4. Partial supervision with intake
5. DELIVER DRIVER to follow to monitor tolerance of diet and determine if additional language/cognitive assessment warranted, pending results of MRI
[2025-05-29 15:31] VITALS: BP 130/67
[2025-05-29] MEDS: RISPERDAL 4 MG PO (17:20)
[2025-05-29] MEDS: LOVENOX 40 MG SC (17:20)
[2025-05-29] MEDS: SEROQUEL 25 MG PO (21:30)
[2025-05-29 23:00] VITALS: BP 127/71
[2025-05-30] MEDS: DESENEX/MITRAZOL/ZEASORB TOPICAL (01:02)
[2025-05-30 07:10] VITALS: BP 134/80
[2025-05-30 08:21] LABS: Hematocrit 34.0 % (37.0-47.0); Hemoglobin 10.5 g/dL (12.0-16.0); Mean Corp Hgb Conc. 30.9 g/dL (33.0-37.0); Mean Corpuscular Volume 90.4 fL (81.0-99.0); Nucleated Red Blood Cells % 0 %; Platelet Count 272 10^3/uL (130-400); Red Cell Dist. Width 14.6 % (11.5-14.5)
[2025-05-30 08:46] LABS: Blood Urea Nitrogen 12 mg/dl (7-17); Calcium 9.0 mg/dl (8.4-10.2); Carbon Dioxide 32 mmol/L (22-30); Chloride 104 mmol/L (98-107); Estimated Creatinine Clearance 63 ml/min; Glucose 81 mg/dl (70-99); HDL Cholesterol 55 mg/dl; LDL Cholesterol, Calculated 108 mg/dl; Potassium 4.5 mmol/L (3.5-5.1); Sodium 137 mmol/L (135-145); Very Low Density Lipoprotein 24 mg/dl (0-30); eGFR > 60.00
[2025-05-30] MEDS: LAMICTAL 150 MG PO (08:57)
[2025-05-30] MEDS: PROZAC 20 MG PO (08:57)
[2025-05-30] MEDS: LOW STRENGTH ASPIRIN 81 MG PO (08:58)
[2025-05-30] MEDS: LASIX 20 MG PO (08:58)
[2025-05-30] MEDS: THERAGRAN 1 TABLET PO (08:58)
[2025-05-30] MEDS: SENOKOT 4.3 MG PO (08:58)
[2025-05-30] MEDS: NAMENDA 5 MG PO (08:58)
[2025-05-30] MEDS: DESENEX/MITRAZOL/ZEASORB 1 APPLIC TOPICAL (08:59)
[2025-05-30 09:32] LABS: Glycohemoglobin (HgbA1c) 6.1 % (4.0-5.9)
--- NOTE | 2025-05-30 12:12 | W.PN.HOSP.TC ---
Addendum entered and electronically signed by Darryl Sandoval MD 05/30/25 13:13:
Discussed at length with patient and son. They both wants patient to go home and do not want any rehab. They are aware of patient's limitation. Patient already has outpatient professor of social work that's trying to get patient more help. Discussed with
residential case manager here, will discharge patient home. Patient does have aid has well for help. Discussed with neurology
Time of discharge 37 minutes
Original Note:
Today's Communication/Plan
-
monitor vitals
see plan
dc planning
cw aspirin
lipid profile,a1c pending
discussed with son
Assessment / Plan
Assessment / Plan
General: Well Developed, Well Nourished, No Apparent Distress
HEENT: NormoCephalic, Moist mucous membranes
Respiratory: Clear and Non Labored Respirations
Cardiac: S1/S2 and Regular Rhythm; No Murmur
GI: Soft, Non Tender, Non Distended and Normal Bowel Sounds
Musculoskeletal: No Edema
Neuro: Awake and AO x 3
Psych: Calm
Generalized weakness
chronic ambulatory dysfunction, wheelchair bound at baseline
UA noted, could be contaminant. Will await for urine culture.
Imaging without fracture
PT OT eval
Stroke alert called 05/[address] head negative
MRI without acute CVA, shows old CVA
Loaded with aspirin, now on aspirin daily
Speech evaluation
Neurology following
Lipid profile, A1c pending
Monitor NIH
start atorvastatin
Asymptomatic pyuria
Urine culture without any growth
Monitor off antibiotics
# Schizoaffective disorder
Stable
continue fluoxetine, lamotrigine, memantine, quetiapine and risperidone
# prior CVA
# history of TBI
# GERD
Code status: full code
DVT prophylaxis: Lovenox sq
PT rec SNF. Patient leaning towards home. Discussed with son as well. Cm aware. Will need safe dc plan
Anticipated Discharge: Within 24 hours
Subjective/Interval History
-
Date of Service: May 30, 2025
Objective Data
-
Labs:
Laboratory Results
05/30/25 05/30/25
07:34 07:35
WBC 5.8
Hgb 10.5 L
Hct 34.0 L
Plt Count 272
Sodium 137
Potassium 4.5
Chloride 104
Carbon Dioxide 32 H
BUN 12
Creatinine 0.7
Glucose 81
Calcium 9.0
Vital Signs:
Vital Signs
Temp Pulse Resp BP Pulse Ox
97.6 F 83 20 134/80 94
05/30/25 07:10 05/30/25 08:58 05/30/25 07:10 05/30/25 08:58 05/30/25 07:10
I&O
05/29/25 05/30/25 05/31/25
06:59 06:59 06:59
Intake Total 720 / 720
Balance 720 / 720
--- NOTE | 2025-05-30 12:24 | CM ---
Addendum entered by Liz Lugo 05/30/25 15:30:
CM contacted pt's son regarding discharge today. He felt that his mother would be fine going home and the caregiver will be seeing her tomorrow at home.
Pt lives in a 4 story apartment building with elevator access; no entry steps. Ambulance transport arranged for discharge to home today.
Son advised that once Ange is home, she has a routine and is able to manage for periods of time by herself.
Plan: Pt discharged to home via ambulance today.
Original Note:
CM following for discharge to home with her son and 40 hours of caregiver services per month through [facility]. Additional caregiver hours have been requested, and pt's community SWer is working on this in addition to a lifeline device and
Meals on Wheels.
Pt's son is agreeable to pt returning home at discharge.
--- NOTE | 2025-05-30 13:17 | W.DCSUMMARY ---
Discharge Summary
Discharge Data
Date of Admission: 05/28/25
Date of Discharge: 05/30/25
-
Pending Results: No
Hospital Course
79-year-old female with past medical history of schizoaffective disorder, CVA, traumatic brain injury, GERD, chronic ambulatory dysfunction came to the hospital with generalized weakness. Patient was seen by physical therapy who recommended SNF
however patient and family chose to rather go home. Patient urinalysis showed pyuria however she had no symptoms of UTI. Urine culture came negative. Patient was monitored off antibiotics. While patient was in the hospital she also had a stroke
alert. CT scan was negative. MRI also was negative for acute CVA however did show old CVA. Patient was seen by neurology who recommended aspirin and statin. Since patient did not want to rehab and wanted to go home and she was feeling better,
she was then discharged home with instructions to follow-up with all her physicians outpatient.
Discharge Plan
-
Patient Disposition: Home with Home Care
Discharge Diagnosis/Procedures: Ambulatory dysfunction
Generalized weakness
Suspected facial droop
Asymptomatic pyuria
Schizoaffective disorder
History of prior CVA
Prediabetes
Diet: Diabetic, Carb Controlled and Other diet
Additional Diets: Soft and bite-size
Activity: With assistance and As tolerated
Driving Restrictions: Not until seen by your Dr
Bathing Restrictions: None
Referrals:
Rebel Lundberg MD [Active, Neurology] - in three to four weeks
Arianna Pena DO [Family Provider, Family Practice] - in less than 1 week
Prescriptions:
New
miconazole nitrate [Miconazorb AF] 2 % Powder
1 applic topical BID Qty: 85 0RF
atorvastatin 40 mg Tablet
40 mg PO QPM Qty: 30 0RF
aspirin 81 mg Tablet,Chewable
81 mg PO DAILY Qty: 30 0RF
Continued
lamotrigine 150 mg tablet
150 mg PO BID Qty: 0 0RF
quetiapine [Seroquel] 25 mg Tablet
25 mg PO HS
sennosides [senna] 8.6 mg Tablet
4.3 mg PO DAILY
risperidone [Risperdal] 4 mg Tablet
4 mg PO QPM
therapeutic multivitamin Tablet
1 tab PO DAILY
furosemide [Lasix] 20 mg Tablet
20 mg PO DAILY
fluoxetine 20 mg Capsule
20 mg PO DAILY
memantine 5 mg Tablet
5 mg PO BID
Discharge Orders:
Discharge Patient (As Directed); Ordered 05/30/25
Ordered By: Darryl Sandoval
Discharge Date and Time
Print Language: MALTESE
[2025-05-30 14:57] VITALS: BP 107/49
--- NOTE | 2025-05-30 16:27 | SUR.OPER ---
Son called around 1345 to inform him that patient will be getting picked up by transport around 230-245 pm. Acute care called this RN around 1615 stating that no one is at [facility] with [facility] to let patient in and that patient is confused with
hx of schizoaffective disorder. Acute care read note that states, 'CM contacted pt's son regarding discharge today. He felt that his mother would be fine going home and the caregiver will be seeing her tomorrow at home. Pt lives in a 4 story
apartment building with elevator access; no entry steps. Ambulance transport arranged for discharge to home today. Son advised that once Ange is home, she has a routine and is able to manage for periods of time by herself.' Acute care informed that
son is aware that patient will be alone for a period of time per CM note. Acute care informed this RN that they will notify transport team. Son called and asked if he was aware that patient was leaving today and he confirmed yes and that someone is
usually out front of facility to let him in so he is unsure why no one is there to let her in. Acute care team informed of this information.
--- NOTE | 2025-05-30 16:28 | W.PN.NEURO.1 ---
Today's Communication / Plan
-
DC on aspirin, statin, outpatient followup.
Neuro Assessment/Plan
Assessment
Ange Ruby is a 79yoF with history of prior RMCA CVA and schizoaffective disorder initially presenting with generalized weakness and fall, found to have transient left facial droop and dysarthria. On today's exam complete resolution of facial
droop, dysarthria, and pain limited weakness.
CT angiogram, and CT perfusion overall relatively unremarkable. No evidence of new stroke on MRI however chronic strokes in the left caudate and right posterior temporal-parietal lobe. Symptoms potentially secondary to recredscence from prior
stroke vs effects secondary to dentures.
Chronic strokes warrant aspirin and statin for secondary stroke prevention. No known history of AFIB and normal LVEF on recent TTE, and lower suspicion for hypercoagulable state, therefore no current indication for anticoagulation.
Plan
- continue ASA 81 mg daily
- continue atorvastatin 40 mg daily
- BP goal normotension
- PT/OT/pain management per primary team
Subjective/Objective
Subjective Data
Date of Service: May 30, 2025
- Reports facial droop has resolved. no new neurological symptoms.
- MRI no acute stroke.
Objective Data
Vital Signs
Temp Pulse Resp BP Pulse Ox
36.6 C 59 16 107/49 96
05/30/25 14:57 05/30/25 14:57 05/30/25 14:57 05/30/25 14:57 05/30/25 14:57
Lab Results
05/30/25 07:35
05/30/25 07:34
Sodium 137 mmol/L (135-145) 05/30/25 07:34
Potassium 4.5 mmol/L (3.5-5.1) 05/30/25 07:34
BUN 12 mg/dl (7-17) 05/30/25 07:34
Glucose 81 mg/dl (70-99) 05/30/25 07:34
Calcium 9.0 mg/dl (8.4-10.2) 05/30/25 07:34
LDL Cholesterol, Calc 108 mg/dl 05/30/25 07:34
Patient Allergies
No Known Allergies Allergy (Verified 05/28/25 10:31)
Review of Systems
-
History Source: Patient
All other systems: Reviewed and negative
Physical Exam
-
Awake, alert, and oriented
CN II-XII intact, no evidence of facial droop or dysarthria
Strength and sensation intact distally.
General: Well Developed, Well Nourished and No Apparent Distress
Data Reviewed
-
MRI Head: Image Reviewed (MRI brain without contrast 05/29 No acute infarct. Small vessel ischemic changes. Old chronic lacunar infarct involving the anterior body of left caudate nucleus. Small subcortical white matter chronic infarct the posterior
right temporal parietal lobe.)
Lipid Profile: Report Reviewed
== END 2025-05-30 15:10 | disposition home or self-care (01) ==
LOC: 3 WEST ACU 15:16
PROVIDERS: Nurse Practitioner Family; Physician Assistant; ADMITTING PHYSICIAN Internal Medicine; ATTENDING PHYSICIAN Internal Medicine; CONSULT PHYSICIAN Student in an Organized Health Care Education/Training Program; EMERGENCY PHYSICIAN Emergency Medicine; FAMILY PHYSICIAN Family Medicine
DX: R26.2 Difficulty in walking, not elsewhere classified (principal); R53.1 Weakness; R73.03 Prediabetes; I44.0 Atrioventricular block, first degree; I49.3 Ventricular premature depolarization; F25.9 Schizoaffective disorder, unspecified; D64.9 Anemia, unspecified; K21.9 Gastro-esophageal reflux disease without esophagitis; M16.11 Unilateral primary osteoarthritis, right hip; W06.XXXA Fall from bed, initial encounter; Z99.3 Dependence on wheelchair; Z79.82 Long term (current) use of aspirin; Z79.899 Other long term (current) drug therapy; Z87.820 Personal history of traumatic brain injury
CPT/HCPCS: 0042T; 70450; 70496; 70498; 70551; 72110; 72125; 72170; 73564; 80048; 80053; 80061; 80178; 81003; 81015; 82962; 83036; 85025; 87086; 92610; 93005; 97167; 97530; 99285; G0378; Q9967